=== PATIENT | male | born 1970 | race African-American/Black ===

== ENCOUNTER 2021-04-27 12:20 | Outpatient (REF) | payer OTHER, SELFPAY ==
--- NOTE | ~2021-04-27 | US_ITS ---
EXAMINATION: US ABDOMEN COMPLETE CLINICAL INFORMATION: Right upper quadrant pain. COMPARISON: Ultrasound abdomen 01/15/2019. TECHNIQUE: Real-time imaging of the abdominal viscera. FINDINGS: PANCREAS: Obscured by interposed bowel gas. ABDOMINAL AORTA: The proximal, mid, and distal segments are normal in caliber. INFERIOR VENA CAVA: Visualized portions are normal. LIVER: The liver is normal in size. The liver contour is normal. There is diffuse increased liver parenchymal echogenicity, consistent with hepatic steatosis. No focal hepatic lesion. There is no intrahepatic biliary duct dilatation seen. GALLBLADDER: Normal. The gallbladder is physiologically distended without evidence of stones, sludge, polyps, wall thickening or pericholecystic fluid. COMMON BILE DUCT: Normal in caliber measuring 0.5 cm in diameter. RIGHT KIDNEY: Normal. No hydronephrosis. No renal calculi or focal parenchymal lesions. The kidney measures 11.9 cm in maximum dimension. LEFT KIDNEY: Normal. No hydronephrosis. No renal calculi or focal parenchymal lesions. The kidney measures 12.3 cm in maximum dimension. SPLEEN: Top normal in size measuring 13.5 cm in maximum dimension. FREE FLUID: None. US/US abdomen complete IMPRESSION: Hepatic steatosis. Otherwise unremarkable exam.
== END 2021-04-27 12:21 | disposition home or self-care (01) ==
LOC: HO.US 12:20
PROVIDERS: Visit Provider Family Medicine
DX: R10.11 Right upper quadrant pain (principal)
CPT/HCPCS: 76700

== ENCOUNTER → 2021-05-05 12:45 | Outpatient (BNVA) | payer OTHER, SELFPAY | PROVIDERS: PCP Family Medicine; Referring Provider Family Medicine; Visit Provider Nurse Practitioner Family | DX: Z12.11 Encounter for screening for malignant neoplasm of colon (principal); R07.81 Pleurodynia | CPT/HCPCS: 99202; 99212 ==

== ENCOUNTER → 2022-05-09 15:31 | Outpatient (BNVA) | payer OTHER, SELFPAY | PROVIDERS: PCP Family Medicine; Visit Provider Surgery | DX: K43.9 Ventral hernia without obstruction or gangrene (principal); R10.9 Unspecified abdominal pain; B20 Human immunodeficiency virus [HIV] disease; E66.01 Morbid (severe) obesity due to excess calories | CPT/HCPCS: 99202 ==

== ENCOUNTER 2022-06-21 16:08 | Outpatient (REF) | payer OTHER, SELFPAY ==
--- NOTE | ~2022-06-21 | CT_ITS ---
EXAMINATION: CT ABDOMEN AND PELVIS WITHOUT CONTRAST CLINICAL INFORMATION: Ventral hernia without obstruction or gangrene. COMPARISON: Ultrasound abdomen 04/27/2021. TECHNIQUE: Multidetector volumetric imaging was performed from the superior aspect of the liver through the pubic symphysis. Sagittal and coronal reformatted images were obtained on the technologist's workstation. This CT examination was performed using dose optimization techniques as appropriate, variously including the following: *Automated exposure control *Adjustment of mA and/or kV according to patient size (this includes techniques or standardized protocols for targeted exams where dose is matched to indication/reason for exam; i.e. extremities or head) *Use of iterative reconstruction technique DLP: 971 mGy-cm FINDINGS: LUNG BASES: The lung bases are clear. The heart size is normal. LIVER, GALLBLADDER, AND BILIARY TREE: The liver is normal in size, shape, and attenuation. No focal hepatic lesion or biliary ductal dilatation is present. The gallbladder is unremarkable with no evidence of radiopaque gallstones, gallbladder wall thickening, or obvious pericholecystic inflammatory changes. PANCREAS: Unremarkable. SPLEEN: Unremarkable. ADRENAL GLANDS: Unremarkable. KIDNEYS AND URETERS: The kidneys are normal in size, shape, and attenuation. No hydronephrosis, hydroureter, or calculi seen. No perinephric stranding. BLADDER: The bladder is contracted. GASTROINTESTINAL TRACT: There is scattered stool in the colon without distention. The small-bowel loops are normal caliber. The appendix is not visualized. ABDOMINAL WALL: There is a moderate-size umbilical hernia containing intra-abdominal fat. LYMPH NODES: There are small prominent left inguinal lymph nodes. The largest lymph node measures 2.2 cm on sagittal image 37/7. VASCULAR: Unremarkable. PELVIC VISCERA: Unremarkable. OSSEOUS STRUCTURES: There are degenerative disc changes and spondylosis throughout lower dorsal and lumbar spine. No aggressive lytic or sclerotic process seen. CT/CT abdomen pelvis wo IV con IMPRESSION: Pjhpvkmw-zk-robki umbilical hernia containing fat. No induration of fat stranding seen. Otherwise no acute intra-abdominal process seen. Fleischner guidelines were followed.
== END 2022-06-21 16:09 | disposition home or self-care (01) ==
LOC: HO.CT 16:08
PROVIDERS: PCP Family Medicine; Visit Provider Surgery
DX: E66.01 Morbid (severe) obesity due to excess calories (principal); K43.9 Ventral hernia without obstruction or gangrene
CPT/HCPCS: 74176

== ENCOUNTER → 2022-07-09 13:01 | Outpatient (BNVA) | payer OTHER, SELFPAY | PROVIDERS: PCP Family Medicine; Visit Provider Surgery | DX: K43.9 Ventral hernia without obstruction or gangrene (principal); E66.01 Morbid (severe) obesity due to excess calories; B20 Human immunodeficiency virus [HIV] disease; M53.9 Dorsopathy, unspecified; Z99.89 Dependence on other enabling machines and devices | CPT/HCPCS: 99212 ==

== ENCOUNTER → 2022-08-03 14:37 | Outpatient (BNVA) | payer OTHER, SELFPAY | PROVIDERS: PCP Family Medicine; Visit Provider Surgery | DX: K43.9 Ventral hernia without obstruction or gangrene (principal); M53.9 Dorsopathy, unspecified; B20 Human immunodeficiency virus [HIV] disease; E66.01 Morbid (severe) obesity due to excess calories; Z99.89 Dependence on other enabling machines and devices; Z68.34 Body mass index [BMI] 34.0-34.9, adult | CPT/HCPCS: 99212 ==

== ENCOUNTER 2022-09-06 12:17 | Outpatient (REF) | payer OTHER, SELFPAY | END 2022-09-06 12:18 | disposition home or self-care (01) | LOC: HO.HOSX 12:17 | PROVIDERS: Visit Provider Orthopaedic Surgery | DX: Z13.89 Encounter for screening for other disorder (principal) ==

== ENCOUNTER 2022-09-27 09:09 | Outpatient (REF) | payer OTHER, SELFPAY ==
--- NOTE | ~2022-09-27 | XR_ITS ---
EXAMINATION: XR PELVIS CLINICAL INFORMATION: Hip pain COMPARISON: CT abdomen and pelvis 06/21/2022. TECHNIQUE: AP view of the pelvis. FINDINGS: There are prominent arthritic changes right hip with axial hip joint narrowing, protrusio acetabulum, and bulky osteophytes around the base femoral head and around the acetabulum. There is no acute or healing fracture or dislocation or destructive process. Degenerative disc changes again noted lower lumbar spine and lumbosacral junction. There is mild left hip joint narrowing. XR/XR pelvis 1-2V IMPRESSION: 1. Prominent arthritic changes right hip along with protrusion acetabulum. 2. Mild left hip joint narrowing. 3. Degenerative disc changes lower lumbar spine and lumbosacral junction.
== END 2022-09-27 09:10 | disposition home or self-care (01) ==
LOC: HO.HOSX 09:09
PROVIDERS: Visit Provider Orthopaedic Surgery
DX: M16.11 Unilateral primary osteoarthritis, right hip (principal); M41.9 Scoliosis, unspecified; M17.11 Unilateral primary osteoarthritis, right knee; B20 Human immunodeficiency virus [HIV] disease
CPT/HCPCS: 72170; 99202

== ENCOUNTER → 2022-12-24 14:50 | Outpatient (BNVA) | payer OTHER, SELFPAY | PROVIDERS: PCP Family Medicine; Visit Provider Orthopaedic Surgery ==

== ENCOUNTER → 2023-01-03 10:45 | Outpatient (BNVA) | payer OTHER, MEDICAID, SELFPAY | PROVIDERS: PCP Family Medicine; Visit Provider Physician Assistant ==

== ENCOUNTER 2023-01-08 07:07 | Inpatient (IN) | payer OTHER, SELFPAY ==
[2022-12-28 12:04] VITALS: BP 138/84; PULSE 82; RESP 16; O2SAT 97; BMI 36.8
[2022-12-28 15:37] LABS: MRSA Nasal PCR NEGATIVE (Negative); SA Nasal PCR POSITIVE (Negative)
[2023-01-08] VITALS (12 sets, daily range): BP systolic 138–188; BP diastolic 78–101; PULSE 74–86; RESP 10–20; TEMP 36.1–36.5; O2SAT 95–100
--- NOTE | ~2023-01-08 | XR_ITS ---
EXAMINATION: XR PELVIS CLINICAL INFORMATION: Right total hip replacement COMPARISON: X-ray pelvis 09/27/2022 TECHNIQUE: AP view of the pelvis. FINDINGS: There is a total right hip replacement with prosthetic components in satisfactory alignment. No periprosthetic fracture. No soft tissue abnormality except for gas from surgery. The left hip joint space is unremarkable. XR/XR pelvis 1-2V IMPRESSION: Status post total right hip arthroplasty with prosthetic components in satisfactory alignment.
--- NOTE | 2023-01-08 07:22 | PHA.MEDREC ---
Pharmacy Consult ? Medication Reconciliation Pharmacy has reviewed the medication reconciliation completed by nursing.
[2023-01-08 08:07] LABS: COVID-19 Test Negative (Negative); IDNOW Serial# BCCEAD1C
[2023-01-08] MEDS: Lactated Ringers 1,000 ML 50 ML IVCONT (08:17)
[2023-01-08 08:37] LABS: Hematocrit 37.7 % (42.0-52.0); Hemoglobin 11.9 g/dl (14.0-18.0)
--- NOTE | 2023-01-08 10:13 | HO.ANESPROP2 ---
HPI - Anesthesia Eval Consult details Narrative: 52 M for AC PMFSH Active Problems Active Problems: All Active Problems (Updated 01/08/23 @ 08:21 by Rosa Musa RN) HIV (human immunodeficiency virus infection) (Acute) Morbid (severe) obesity due to excess calories (Acute) Ventral hernia (Acute) Ambulates with cane (Acute) Low back problem (Acute) Osteoarthritis of right hip (Acute) Osteoarthritis of right knee (Acute) Scoliosis (Acute) Past Medical History Medical History Anxiety GERD (gastroesophageal reflux disease) Hx of hepatitis C Insomnia Right knee pain Family History Family History Maternal Uncle Lung cancer Family history of problems with anesthesia: No Surgical History Surgical History H/O dental oriental orthodox No pertinent past surgical history History of Problems with Anesthesia: No Social History Social History Household Members: Other Household Members Other:: nephew Housing: House Are you a primary personal care aid to a significant other at home: No Do you presently have visiting nurse or other home services: Yes (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) Alcohol intake: current Alcohol intake frequency: holidays/special occasions only Patient Tobacco Use Status: Never used Tobacco Substance Use Type: Former Substance User and Opiates Substance Use Type Other:: on suboxone since 2012- clean 5 years Have you been hit, kicked, punched, or otherwise hurt by someone within the past year? If so, by whom?: No Spiritual Healthcare Practices: none [facility] Practices: none Cultural Healthcare Practices: none Are you DNR?: No Advance Directives: No Advance Directives Information Provided: Yes Advance Directives on File: No Recently lost weight without trying: No Nutrition Risks: No Nutritional Risk Poor oral hygiene: Yes (cracked upper left molar, no dentist visit for 20 years ) Meds Allergies Allergy/AdvReac Type Severity Reaction Status Date / Time sulfamethoxazole Allergy Intermediate Rash Verified 01/03/23 10:55 [From Bactrim] trimethoprim [From Bactrim] Allergy Intermediate Rash Verified 01/03/23 10:55 Active Medications: Current Medications Lactated Ringer's (Lr) 1,000 mls @ 50 mls/hr IVCONT .Q20H ESTEBAN Last Admin: 01/08/23 08:17 Dose: 50 mls/hr Home Medications Medication Instructions Recorded Confirmed Last Taken Type albuterol sulfate 90 mcg/actuation 2 puff inhalation Q6H PRN Wheezing 05/05/21 12/24/22 01/09/22 History aerosol inhaler bictegravir 50 mg-emtricitabine 1 tab PO DAILY 05/05/21 12/28/22 01/07/23 History 200 mg-tenofovir alafenam 25 mg tablet (Biktarvy) blood pressure test kit-large #1 ea 05/05/21 12/24/22 Unknown History buprenorphine 8 mg-naloxone 2 mg 1 film sublingual TID 05/05/21 12/28/22 01/07/23 History sublingual film bupropion HCl 300 mg 24 hr tablet, 300 mg PO QAM 05/05/21 12/28/22 01/07/23 History extended release (Wellbutrin XL) duloxetine 30 mg capsule,delayed 30 mg PO DAILY 05/05/21 12/28/22 01/07/23 History release (Cymbalta) duloxetine 60 mg capsule,delayed 60 mg PO DAILY 05/05/21 12/28/22 01/07/23 History release omeprazole magnesium 20 mg 20 mg PO DAILY 05/05/21 12/28/22 01/07/23 History tablet,delayed release (Prilosec OTC) gabapentin 400 mg capsule 400 mg PO TID 12/24/22 12/28/22 01/07/23 History ibuprofen 200 mg tablet 400 mg PO Q6H PRN Pain 12/28/22 12/28/22 01/02/23 History melatonin 10 mg tablet 10 mg PO BEDTIME PRN Insomnia 12/28/22 12/28/22 01/07/23 History bbvlavsc-tif-mokah acid 300 1 tab PO DAILY 12/28/22 12/28/22 01/07/23 History mcg-lycopene 600 mcg-lutein 300 mcg tablet (Centrum [facility]) bupropion HCl 150 mg 24 hr tablet, 150 mg PO DAILY 01/08/23 01/08/23 01/07/23 History extended release Exam Exam Date and Time: January 08, 2023 1013 Height,Weight and Vital Signs: Height 5 ft 7 in Weight 235 lb Last Vital Signs Temp 97 F 01/08/23 08:01 Pulse 83 01/08/23 08:01 Resp 20 01/08/23 08:01 BP 152/92 H 01/08/23 08:01 Pulse Ox 98 01/08/23 08:01 O2 Del Method Room Air 01/08/23 08:01 Pertinent Lab Results Pertinent Lab Results: Laboratory Tests 12/28/22 12/28/22 01/08/23 12:30 13:35 07:40 Hgb Hct Nasal Screen MRSA (PCR) NEGATIVE Nasal S. aureus Screen POSITIVE A Nasal MRSA/S.aureus Interp SEE NOTE COVID-19 (KO) Negative COVID-19 Clin Com See Note Blood Type O Positive Antibody Screen NEGATIVE 01/08/23 08:24 Hgb 11.9 L Hct 37.7 L Nasal Screen MRSA (PCR) Nasal S. aureus Screen Nasal MRSA/S.aureus Interp COVID-19 (KO) COVID-19 Clin Com Blood Type Antibody Screen Airway Mallampati Class: II TM Dist: >3cm Neck ROM: Full Adult Head Mouth w/Numbe Teeth: 1. Chipped Loose/Missing/Broken Teeth: Yes Assessment and Plan Assessment Anesthesia Assessment: Anesthesia Plan Discussed and Chart Reviewed Final Anesthetic Review Family History of Problems with Anesthesia: No History of Problems with Anesthesia: No NPO: Yes ASA Class: II Final Preanesthetic Review: No Changes in Pt Med Stat, Meds/Allgs Chart Reviewed, Consent Obtained/Reviewed and Anes Risks/Benef Reviewed Patient Risk: Low Procedure Risk: Low Anesthetic Plan Anesthetic Plan: GA Disposition: Standard PACU
--- NOTE | 2023-01-08 12:49 | PM.OP ---
Brief Operative Note Date of Service: 01/08/23 Pre-op diagnosis: RIght hip OA Post-op diagnosis: same Procedure: Right AC Implants: Rom Trident 54/ 20 deg lip liner [place] Accolade2 #5 127 deg with +2.5 /36 ceramic femoral head Surgeon: Jp Hernandez MD Anesthesia: GETA and local Was an Immigration Coordinator used for this Procedure?: Yes Immigration Coordinator: Nick Burrows Estimated blood loss (mL): 250 IV fluids (mL): 1,000 Pathology: other Condition: stable Disposition: PACU
[2023-01-08] MEDS: HYDROmorphone HCl 0.5 MG/0.5 ML SYRINGE IVPUSH ×2 (13:10→17:55)
[2023-01-08] MEDS: Acetaminophen 1,000 MG/100 ML PIGGYBACK 400 MG IV ×3 (13:12→21:10)
[2023-01-08] MEDS: hydrALAZINE HCl 20 MG/ML VIAL 10 MG IVPUSH (13:45)
[2023-01-08] MEDS: Lactated Ringers 1,000 ML 100 ML IVCONT ×2 (14:01→23:57)
[2023-01-08] MEDS: oxyCODONE HCl Immed Release 5 MG TABLET 10 MG PO (15:25)
--- NOTE | 2023-01-08 15:37 | P.CONHOSP_ITS ---
History of Present Illness Data of Consult Service Date: 01/08/23 Requesting physician: Nick Burrows Primary Care Provider: Kaylee Mazariegos MD HPI Reason for consult: medical management 52-year-old male with history of HIV on Biktarvy following with Dr. Brush at [facility], hx hepatitis c treated 2010, chronic pain syndrome, osteoarthritis, hx polysubstance use, opioid depedence on suboxone, and scoliosis admitted to orthopedic surgery for management of OA right hip s/p right AC with consult placed to hospitalist service for medical management. He is reporting some low back pain. Otherwise no complaints. Review of Systems Review of Systems: General: No fevers, malaise, unintentional weight loss HEENT: No blurred vision, diplopia. No sore throat, nasal congestion, rhinorrhea, sinus pain, ear pain Cardiovascular: No chest pain, palpitations, or leg edema Respiratory: No shortness of breath, wheezing, cough GI: No abdominal pain, nausea, vomiting, diarrhea, constipation, melena, mariza tochezia : No dysuria, hematuria, increased urinary frequency, decreased urinary output MSK: No myalgia, +low back pain Neuro: No headaches, weakness, paresthesias Skin: No rashes or lesions [facility] Medical History (Updated 01/08/23 @ 15:42 by ENOCH Anna) Anxiety Chronic pain disorder GERD (gastroesophageal reflux disease) HIV (human immunodeficiency virus infection) Hx of hepatitis C Insomnia Osteoarthritis of right hip Right knee pain Family History Maternal Uncle Lung cancer Surgical History H/O dental mosque No pertinent past surgical history Social History Household Members: Other Household Members Other:: nephew Housing: House Are you a primary adult day care worker to a significant other at home: No Do you presently have visiting nurse or other home services: Yes (FEED IN WORKER nephew, daily Moving 01/05/2023-4 [facility]) Alcohol intake: current Alcohol intake frequency: holidays/special occasions only Patient Tobacco Use Status: Never used Tobacco Substance Use Type: Former Substance User and Opiates Substance Use Type Other:: on suboxone since 2012- clean 5 years Have you been hit, kicked, punched, or otherwise hurt by someone within the past year? If so, by whom?: No Spiritual Healthcare Practices: none Evangelical Healthcare Practices: none Cultural Healthcare Practices: none Are you DNR?: No Advance Directives: No Advance Directives Information Provided: Yes Advance Directives on File: No Recently lost weight without trying: No Nutrition Risks: No Nutritional Risk Poor oral hygiene: Yes (cracked upper left molar, no dentist visit for 20 years ) Meds Allergies Allergy/AdvReac Type Severity Reaction Status Date / Time sulfamethoxazole Allergy Intermediate Rash Verified 01/03/23 10:55 [From Bactrim] trimethoprim [From Bactrim] Allergy Intermediate Rash Verified 01/03/23 10:55 Active Medications: Current Medications Albuterol Sulfate (Albuterol Sulfate (0.083%) 2.5 Mg/3 Ml Vial.Neb) 2.5 mg INHALE ONCE PRN PRN Reason: Wheezing Buprenorphine/Naloxone (Buprenorphine/Naloxone 8/2 Mg Film) 1 film SUBLINGUAL TID ESTEBAN Celecoxib (Celecoxib 200 Mg Capsule) 200 mg PO BID ESTEBAN Docusate Sodium (Docusate Sodium 100 Mg Capsule) 100 mg PO BID ESTEBAN Hydromorphone HCl (Hydromorphone Hcl 0.5 Mg/0.5 Ml Syringe) 0.5 mg IVPUSH Q5M PRN; Protocol PRN Reason: Pain, Severe (Pain Scale 7-10) Last Admin: 01/08/23 13:10 Dose: 0.5 mg Hydromorphone HCl (Hydromorphone Hcl 0.5 Mg/0.5 Ml Syringe) 0.5 mg IVPUSH Q4H PRN; Protocol PRN Reason: Pain, Severe (Pain Scale 7-10) Lactated Ringer's (Lr) 1,000 mls @ 50 mls/hr IVCONT .Q20H ESTEBAN Last Admin: 01/08/23 08:17 Dose: 50 mls/hr Promethazine HCl 12.5 mg/ (Sodium Chloride) 50.5 mls @ 202 mls/hr IV ONCE PRN PRN Reason: Nausea and Vomiting Lactated Ringer's (Lr) 1,000 mls @ 100 mls/hr IVCONT .Q10H [facility] Stop: 01/09/23 13:51 Last Admin: 01/08/23 14:01 Dose: 100 mls/hr Cefazolin Sodium/Dextrose (Ancef) 2 gm in 50 mls @ 100 mls/hr IV POSTOP ONE Stop: 01/08/23 16:29 Acetaminophen (Ofirmev) 1,000 mg in 100 mls @ 400 mls/hr IV Q6H [facility] Stop: 01/09/23 09:10 Last Admin: 01/08/23 15:28 Dose: 400 mls/hr Ondansetron HCl (Ondansetron Hcl 4 Mg/2 Ml Vial) 4 mg IVPUSH ONCE PRN PRN Reason: Nausea and Vomiting Ondansetron HCl (Ondansetron Hcl 4 Mg/2 Ml Vial) 4 mg IVPUSH Q8H PRN PRN Reason: Nausea and Vomiting Oxycodone HCl (Oxycodone Hcl Immed Release 5 Mg Tablet) 5 mg PO ONCE PRN PRN Reason: Pain, Severe (Pain Scale 7-10) Oxycodone HCl (Oxycodone Hcl Immed Release 5 Mg Tablet) 10 mg PO Q4H PRN PRN Reason: Pain, Moderate (Pain Scale 4-6 Last Admin: 01/08/23 15:25 Dose: 10 mg Oxycodone HCl (Oxycodone Hcl Er 10 Mg Tab.Er.12h) 10 mg PO BID [facility] Sodium Chloride (0.9 % Sodium Chloride Flush 3 Ml Syringe) 3 ml IVFLUSH QSHIFT [facility] Home Medications Medication Instructions Recorded Confirmed Last Taken Type albuterol sulfate 90 mcg/actuation 2 puff inhalation Q6H PRN Wheezing 05/05/21 12/24/22 01/09/22 History aerosol inhaler bictegravir 50 mg-emtricitabine 1 tab PO DAILY 05/05/21 12/28/22 01/07/23 History 200 mg-tenofovir alafenam 25 mg tablet (Biktarvy) blood pressure test kit-large #1 ea 05/05/21 12/24/22 Unknown History buprenorphine 8 mg-naloxone 2 mg 1 film sublingual TID 05/05/21 12/28/22 04/0 12/27 History sublingual film bupropion HCl 300 mg 24 hr tablet, 300 mg PO QAM 05/05/21 12/28/22 01/07/23 History extended release (Wellbutrin XL) duloxetine 30 mg capsule,delayed 30 mg PO DAILY 05/05/21 12/28/22 01/07/23 History release (Cymbalta) duloxetine 60 mg capsule,delayed 60 mg PO DAILY 05/05/21 12/28/22 01/07/23 History release omeprazole magnesium 20 mg 20 mg PO DAILY 05/05/21 12/28/22 01/07/23 History tablet,delayed release (Prilosec OTC) gabapentin 400 mg capsule 400 mg PO TID 12/24/22 12/28/22 01/07/23 History ibuprofen 200 mg tablet 400 mg PO Q6H PRN Pain 12/28/22 12/28/22 01/02/23 History melatonin 10 mg tablet 10 mg PO BEDTIME PRN Insomnia 12/28/22 12/28/22 01/07/23 History zzjpuopv-gkl-bcauy acid 300 1 tab PO DAILY 12/28/22 12/28/22 01/07/23 History mcg-lycopene 600 mcg-lutein 300 mcg tablet (Centrum [facility]) bupropion HCl 150 mg 24 hr tablet, 150 mg PO DAILY 01/08/23 01/08/23 01/07/23 History extended release Physical Exam Vital Signs and Narrative: Vital Signs: Last Vital Signs Temp 97.2 F 01/08/23 14:59 Pulse 78 01/08/23 14:59 Resp 15 01/08/23 14:59 BP 166/91 H 01/08/23 14:59 Pulse Ox 98 01/08/23 14:59 O2 Del Method Room Air 01/08/23 14:59 O2 Flow Rate 1 01/08/23 13:15 BMI result Body Mass Index 36.8 Constitutional - Awake and Alert, No apparent distress Eyes - PERRLA, EOMI Cardiovascular - S1S2, RRR, No edema Respiratory - Normal lung expansion, Normal respiratory effort, No respiratory distress, CTA bilaterally Gastrointestinal - NT / ND; +BS; No rebound or guarding Extremities - no calf tenderness bilaterally, no swelling Skin - Warm/Dry Neurological - Alert & oriented x3 Psychological - Appropriate affect Results Labs 01/08/23 08:24 Labs: Laboratory Results - last 24 hr 01/08/23 07:40 COVID-19 (KO) Negative COVID-19 Clin Com See Note Imaging Radiologist's Impressions: Impressions Pelvis X-Ray 01/08/23 12:48 IMPRESSION: Status post total right hip arthroplasty with prosthetic components in satisfactory alignment. Assessment and Plan (1) Osteoarthritis of right hip: Status: Acute Plan 52-year-old male with history of HIV on Biktarvy following with Dr. Brush at [facility], hx hepatitis c treated 2010, chronic pain syndrome, osteoarthritis, hx polysubstance use, opioid depedence on suboxone, and scoliosis admitted to orthopedic surgery for management of OA right hip s/p right AC with consult placed to hospitalist service for medical management. #Osteoarthritis right knee s/p right AC POD 0 -plan per ortho surgery #HIV -Continue Biktarvy -Reports last viral load negative, CD4 count reasonable (does not recall value) -Outpt follow up #Opioid dependence with chronic pain syndrome -continue suboxone, gabapentin, duloxetine -Further pain management per ortho surgery #Severe obesity- BMI >36 -weight loss efforts advised Thank you for allowing me to participate in this consult. Signing off at this time. Please do not hesitate to call for further questions. Time Spent With Patient Time: Total time managing care of this patient today ____ minutes.
[2023-01-08] MEDS: Buprenorphine/Naloxone 8/2 mg FILM 1 FILM SUBLINGUAL ×2 (15:39→21:12)
[2023-01-08] MEDS: ceFAZolin Sodium/Dextrose,Iso 2 GM/50 ML PIGGYBACK IV (16:25)
[2023-01-08] MEDS: Docusate Sodium 100 MG CAPSULE PO (21:11)
[2023-01-08] MEDS: Celecoxib 200 MG CAPSULE PO (21:11)
[2023-01-08] MEDS: oxyCODONE HCl ER 10 MG TAB.ER.12H PO (21:11)
[2023-01-08] MEDS: 0.9 % Sodium Chloride Flush 3 ML SYRINGE IVFLUSH (21:12)
[2023-01-09 01:51] VITALS: BP 139/91; PULSE 108; RESP 16; TEMP 37.5; O2SAT 95
[2023-01-09 03:32] VITALS: BP 116/56; PULSE 99; RESP 16; TEMP 37.1; O2SAT 95
[2023-01-09] MEDS: Lactated Ringers 1,000 ML 50 ML IVCONT ×2 (04:10→21:27)
[2023-01-09 06:00] VITALS: BP 146/84; PULSE 103; RESP 16; TEMP 37.7; O2SAT 94
[2023-01-09 06:04] LABS: MANUAL DIFF FLAG NO
[2023-01-09 06:20] LABS: Basophils Percent Auto 0.3 % (0-2); Eosinophils Percent Auto 0.5 % (0-4); Hemoglobin 8.9 g/dl (14.0-18.0); Imm Gran Abs Auto 0.03 X10*3/uL (0.00-0.03); Imm Gran Pct Auto 0.5 % (0.0-0.4); Lymphocytes Absolute Auto 1.1 X10*3/uL (1.2-4.9); Lymphocytes Percent Auto 18.8 % (20-40); Mean Corpuscular HGB Conc 31.8 g/dl (31.0-36.0); Mean Corpuscular Hemoglobin 26.9 pg (27.0-33.0); Mean Corpuscular Volume 84.6 fL (80.0-98.0); Mean Platelet Volume 9.1 fL (9.4-12.4); Monocytes Absolute Auto 0.9 X10*3/uL (0.1-1.2); Monocytes Percent Auto 14.5 % (2-11); Neutrophils Percent Auto 65.4 % (45-73); Platelet Count 196 X10*3/uL (160-400); Red Blood Count 3.31 X10*6/uL (4.60-5.80); White Blood Count 6.1 X10*3/uL (4.8-10.8)
[2023-01-09 06:41] LABS: Anion Gap 10 (12-20); Blood Urea Nitrogen 13 mg/dL (9-16); Calcium 7.9 mg/dL (8.4-10.2); Carbon Dioxide 23 mmol/L (22-29); Chloride 106 mmol/L (96-108); Estimated Glomerular Filt Rate > 60; Glucose Fasting 110 mg/dL (60-99); Sodium 135 mmol/L (135-145)
[2023-01-09] MEDS: HYDROmorphone HCl 0.5 MG/0.5 ML SYRINGE IVPUSH (06:49)
[2023-01-09 07:13] VITALS: BP 153/88; PULSE 109; RESP 17; TEMP 37.3; O2SAT 97
--- NOTE | 2023-01-09 07:24 | PM.PNORT ---
Subjective Subjective Date of Service: 01/09/23 Interval history: POD1 s/p RTHA. No overnight events. Pain is well managed. Resting in bed comfortably. No additional complaints. Physical Exam Vital Signs: Vital Signs: Last Vital Signs Temp 99.1 F 01/09/23 07:13 Pulse 109 H 01/09/23 07:13 Resp 17 01/09/23 07:13 BP 153/88 H 01/09/23 07:13 Pulse Ox 97 01/09/23 07:13 O2 Del Method Room Air 01/09/23 07:13 O2 Flow Rate 1 01/08/23 13:15 BMI result Body Mass Index 36.8 Const: General: cooperative, healthy appearing and no acute distress Resp: Effort & Inspection: normal respiratory effort and able to speak in complete sentences Cardio: Rate: regular rate Peripheral pulses: Peripheral pulses 2+ throughout GI: Palpation (GI): Soft to palpation Skin: Lesions: no lesions Rashes: no rashes Extrem: Other: Right hip Aquacel is c/d/i. Able to dosri/plantarflex. NVI. Procedures Date of Service Date of Service: 01/09/23 Progress Note: A&P Assessment and plan (1) Status post total hip replacement, right: Status: Acute Plan Continue pain mgmnt Begin ASA for dvt ppx begin PT for RTHA - WBAT Dispo planning-Pending PT eval, pain mgmnt Time Spent With Patient Time: Total time managing care of this patient today ____ minutes. Quality Stroke Does the patient have a stroke diagnosis?: No VTE Prior VTE?: No VTE Risk Level:: Medical - moderate - high VTE Device Contraindication: N/A - Device Ordered VTE Drug Contraindication: N/A - Med Ordered
[2023-01-09] MEDS: Acetaminophen 1,000 MG/100 ML PIGGYBACK 400 MG IV (09:04)
[2023-01-09] MEDS: Docusate Sodium 100 MG CAPSULE PO ×2 (09:05→21:24)
[2023-01-09] MEDS: Celecoxib 200 MG CAPSULE PO ×2 (09:05→21:24)
[2023-01-09] MEDS: oxyCODONE HCl ER 10 MG TAB.ER.12H PO ×2 (09:05→21:25)
[2023-01-09] MEDS: Buprenorphine/Naloxone 8/2 mg FILM 1 FILM SUBLINGUAL ×3 (09:06→21:25)
[2023-01-09] MEDS: Lactated Ringers 1,000 ML 100 ML IVCONT (09:06)
[2023-01-09] MEDS: oxyCODONE HCl Immed Release 5 MG TABLET 10 MG PO (10:35)
--- NOTE | 2023-01-09 11:46 | MHC.CM.PN ---
pt lives alone will be going home with hvns per pts choice pt is cris wayx x 2 has own ride home pt will be moving from [address] in [place]
[2023-01-09] MEDS: Aspirin 325 MG TABLET PO ×2 (12:10→21:24)
--- NOTE | 2023-01-09 14:08 | HO.POSTANES ---
Post Anesthesia Evaluation Post Anesthesia Evaluation Vital Signs: Vital Signs Temp Pulse Resp BP Pulse Ox O2 Del Method 01/09/23 07:13 99.1 F 109 H 17 153/88 H 97 Room Air 01/09/23 06:00 99.8 F 103 H 16 146/84 H 94 Room Air 01/09/23 03:32 98.7 F 99 16 116/56 L 95 Room Air Anesthesia: General Mental Status: Awake Pain Control: Satisfactory Nausea/Vomiting: None Hydration: Adequate Anesthesia-Related Issues: No Anes. Related Issues
--- NOTE | 2023-01-09 14:35 | W.PM.OPN ---
Operative Note Operative Note Date of Service: 01/09/23 Narrative: Date of Service: 01/08/23 Pre-op diagnosis: RIght hip OA Post-op diagnosis: same Procedure: Right AC Implants: Otley Trident 54/ 20 deg lip liner Rom Accolade2 #5 127 deg with +2.5 /36 ceramic femoral head Surgeon: Jp Hernandez MD Anesthesia: GETA and local Was an Setter Induction Heating Equipment used for this Procedure?: Yes Setter Induction Heating Equipment: Nick Burrows Estimated blood loss (mL): 250 IV fluids (mL): 1,000 Pathology: other Condition: stable Disposition: PACU Procedure in detail: Patient was brought into the operating room and placed in the right lateral decubitus position. All bony prominences were well padded and the limb was prepped and draped in standard sterile fashion. A time-out was called to identify proper site procedure proper surgeon IV antibiotics and 1 g of transaxemic acid were administered. I began by making a curvilinear incision over the posterolateral aspect of the greater trochanter. Of not he had a fixed flexion contracture and I was unable to extend to less than 45deg. He was externally rotated about 20 deg and I could not internally rotate his leg at all. Dissection was taken down to the tensor fascia which was incised in line with the incision and a Charnley retractor was placed. Cautery was used to maintain hemostasis. I perfromed a capsulotomy nad could visualize the acetabulum and the femoral head. Because he was in protrusio I used a small osteotome to circumeferetnially ( not anterior) remove approximately 5-7 mm of acetabulum. This allowed for me to eventually dislocate. A neck cut was made ~1 cm from the lesser. I then pleaced my anterior and posterior acetabular retractors and removed inferior and anterior and superior osteophytes. I then begane with a 46 reamer. I could not medialize given the prostrusio and so I sequentially reamed up to a 54. I weas able to get to bleeding bone circumferentially and impacted a 54 cup in 45 incliniation and ~ 20 deg of anteversion. I then placed a 20 deg posterior lipped liner and turned my attention to the femur. A Werewolf cautery wand was used to maintain hemostasis over the capsule and meniscal beds, the gutters and peripatellar soft tissues. I identified the piriformis insertion and used this as a starting point for my mitziie cutter. The medius tendon was protected with a Hibs retractor. A Charnley awl was inserted in the canal and a curved curette used to remove the lateral bone. I irrigated copiously. I then sequentially broached in the patient's natural version to a size 5 and placed my trial implants. I used a #5/127/+2.5based on my pre-operative template. Using a trail head I took the hip through range of motion. I was satisfied with the stability. There was some anterior impingement of the trochanter on the acetabular osteophytes and I did additianal bony removal anterioly and superiorly. I removed all instrumentation and copiously irrigated. I placed my final femoral implant and again took the hip through range of motion and was satisfied with the stability and length. The final 2.5 implant was impacted in place and the hip reduced. I then irrigated for 3 minutes with iodine and placed 1 g of local transaxemic acid. I performed a capsular closure with 2.0 fiberwire, Kzizy's fascia with 0 Vicryl, subcuticular with 2-0 Vicryl and the skin with cortez. Patient was placed into a sterile dressing. Radiogrpahs were taken supine on the operative table and I was satsified with the alignement and the patient was subsequently extubated brought to the recovery room in stable condition. There were no known complications.
[2023-01-09 15:45] VITALS: BP 136/67; PULSE 93; RESP 16; TEMP 36.3; O2SAT 95
[2023-01-09 20:00] VITALS: BP 142/80; PULSE 106; RESP 16; TEMP 36.6; O2SAT 95
[2023-01-10 03:38] VITALS: BP 131/70; PULSE 106; RESP 16; TEMP 36.1; O2SAT 95
[2023-01-10 06:01] LABS: MANUAL DIFF FLAG NO
[2023-01-10 06:10] LABS: Basophils Percent Auto 0.2 % (0-2); Eosinophils Absolute Auto 0.1 X10*3/uL (0.0-0.4); Eosinophils Percent Auto 0.6 % (0-4); Hematocrit 26.4 % (42.0-52.0); Hemoglobin 8.4 g/dl (14.0-18.0); Imm Gran Abs Auto 0.04 X10*3/uL (0.00-0.03); Imm Gran Pct Auto 0.4 % (0.0-0.4); Lymphocytes Absolute Auto 1.5 X10*3/uL (1.2-4.9); Lymphocytes Percent Auto 16.4 % (20-40); Mean Corpuscular HGB Conc 31.8 g/dl (31.0-36.0); Mean Corpuscular Hemoglobin 26.9 pg (27.0-33.0); Mean Corpuscular Volume 84.6 fL (80.0-98.0); Monocytes Absolute Auto 1.4 X10*3/uL (0.1-1.2); Monocytes Percent Auto 15.4 % (2-11); Neutrophils Absolute Auto 6.1 x10*3/uL (2.0-8.3); Platelet Count 191 X10*3/uL (160-400); Red Blood Count 3.12 X10*6/uL (4.60-5.80); Red Cell Distribution Width 14.1 % (11.0-16.0); White Blood Count 9.1 X10*3/uL (4.8-10.8)
[2023-01-10 06:22] LABS: Anion Gap 12 (12-20)
[2023-01-10] MEDS: oxyCODONE HCl ER 10 MG TAB.ER.12H PO (07:25)
[2023-01-10] MEDS: Aspirin 325 MG TABLET PO (07:25)
[2023-01-10] MEDS: Celecoxib 200 MG CAPSULE PO (07:25)
[2023-01-10] MEDS: Docusate Sodium 100 MG CAPSULE PO (07:25)
[2023-01-10] MEDS: Buprenorphine/Naloxone 8/2 mg FILM 1 FILM SUBLINGUAL (07:26)
[2023-01-10 07:45] LABS: Blood Urea Nitrogen 8 mg/dL (9-16); Calcium 8.4 mg/dL (8.4-10.2); Carbon Dioxide 23 mmol/L (22-29); Chloride 104 mmol/L (96-108); Creatinine Clr Calc Pharmacy 171.4; Estimated Glomerular Filt Rate > 60; Glucose Fasting 105 mg/dL (60-99); Potassium 3.9 mmol/L (3.3-5.1); Sodium 135 mmol/L (135-145)
[2023-01-10 08:00] VITALS: BP 138/68; PULSE 104; RESP 16; TEMP 36.4; O2SAT 98
--- NOTE | 2023-01-10 08:40 | W.MHC.F2F ---
Service Date Service Date: 01/10/23 Encounter Date of encounter: 01/10/23 Reasons for Services Signs and symptoms assessed: s/p RTHA. Pt. is considered homebound due to recent surgery. Unable to drive, poor balance, poor gait mechanics. Reason for physical therapy: home safety and mobility, therapeutic exercises, restore joint function, gait/transfer training, assess need for DME and ADL training Reason for occupational therapy: home safety and mobility, therapeutic exercises, restore joint function, gait/transfer training, assess need for DME and ADL training Homebound: Leaving the home is medically contraindicated at this time without the asist of a device and/or another person due th the listed conditions above and below. Reason homebound: unsteady gait / fall risk, leg weakness, pain with ambulation, pain with transfers, poor balance / fall risk and unable to drive Certification: Based on the above findings, I certify that this patient is confined to the home and needs intermittent long-term care, physical therapy and/or speech therapy, or continues to need occupational therapy. The patient is under my care, and I have initiated the establishment of the plan of care. The patient will be followed by a physician who will periodically review the plan of care. Time Spent With Patient Time: Total time managing care of this patient today ____ minutes.
--- NOTE | 2023-01-10 08:45 | P.DS_ITS ---
DS: Providers Provider Date of Service: 01/10/23 Date of admission: 01/08/23 07:07 Primary care physician: Kaylee Mazariegos MD Consults: 01/08/23 14:56 Consult to Hospitalist Routine Comment: hiv/hep c/medical data management manager Provider: Hospitalist Reason For Exam: hiv/hep c/medical management DS: Diagnosis Discharge Diagnosis (1) Status post total hip replacement, right: Status: Acute DS: Summary Hospital Course Hospital Course: The patient underwent a successful right total hip arthroplasty, they were transferred to PACU and then to the floor to recover. During their stay, their v itals were stable, afebrile at 97.6. Labs were unremarkable, H/H 8.4/26.4. POD 1 they were started on Aspirin 325mg po bid for DVT ppx, they also received Physical Therapy services twice a day. Prior to discharge, their dressing was changed, incision clean dry and intact, new Aquacel dressing applied and the plan was to be discharged home with VNA services. Time Spent with Patient Time attestation: Total time managing care of this patient today ____ minutes. Discharge coordination time: Less than 30 minutes Quality: Safe Use of Opioids Does Pt have an Active Cancer Diagnosis on the Problem List?: No Quality: Stroke Does the patient have a stroke diagnosis?: No Physical Exam Vital Signs: Vital Signs: Last Vital Signs Temp 97.6 F 01/10/23 08:00 Pulse 104 H 01/10/23 08:00 Resp 16 01/10/23 08:00 BP 138/68 01/10/23 08:00 Pulse Ox 98 01/10/23 08:00 O2 Del Method Room Air 01/10/23 08:00 O2 Flow Rate 1 01/08/23 13:15 BMI result Body Mass Index 36.8 Const: General: cooperative, healthy appearing and no acute distress Resp: Effort & Inspection: normal respiratory effort and able to speak in complete sentences Cardio: Rate: regular rate Peripheral pulses: Peripheral pulses 2+ throughout GI: Palpation (GI): Soft to palpation Skin: Lesions: no lesions Rashes: no rashes Extrem: Other: Right hip cortez intact. No erythema or drainage. Able to dosri/plantarflex. NVI. DS: Data Data Completed and Pending Pending studies at discharge: Pending at discharge 01/08/23 11:24 Surgical [PTH] Routine Labs on day of discharge: Laboratory Results - last 24 hr 01/10/23 01/10/23 05:17 05:17 WBC 9.1 RBC 3.12 L Hgb 8.4 L Hct 26.4 L MCV 84.6 MCH 26.9 L MCHC 31.8 RDW 14.1 Plt Count 191 MPV 9.0 L Immature Gran % (Auto) 0.4 Neut % (Auto) 67.0 Lymph % (Auto) 16.4 L Eagle % (Auto) 15.4 H Eos % (Auto) 0.6 Baso % (Auto) 0.2 Lymph # (Auto) 1.5 Eagle # (Auto) 1.4 H Eos # (Auto) 0.1 Baso # (Auto) 0.0 Abs Immat Gran (auto) 0.04 H Absolute Neuts (auto) 6.1 Absolute Nucleated RBC 0.000 Nucleated RBC % (auto) 0.0 Sodium 135 Potassium 3.9 Chloride 104 Carbon Dioxide 23 Anion Gap 12 BUN 8 L Creatinine 0.58 Estim Creat Clear Calc 171.4 Estimated GFR > 60 Fasting Glucose 105 H Calcium 8.4 D Discharge Plan Discharge Anticipated Discharge Date/Time: 01/10/23 12:31 Patient Disposition: Home Health Service Discharge Diagnosis: s/p RTHA Referrals: Aeysha Prado PA-C [Physician Messenger Floorperson] - 2 Weeks (01/24/23 2:30 [facility] Ayesha Prado PA-C) Discharge Medications: New aspirin 325 mg Tablet 325 mg PO BID 42 Days Qty: 84 0RF celecoxib 200 mg Capsule 200 mg PO BID 30 Days Qty: 60 0RF oxycodone 10 mg tablet 10 mg PO Q4H PRN (Reason: Pain, Moderate (Pain Scale 4-6) 7 Days Qty: 42 0RF Rx Instructions: Partial Fill upon patient request. docusate sodium 100 mg Capsule 100 mg PO BID 30 Days Qty: 60 0RF Continued Centrum Silver Men 300-600-300 mcg Tablet 1 tab PO DAILY melatonin 10 mg Tablet 10 mg PO BEDTIME PRN (Reason: Insomnia) bupropion HCl 150 mg tablet extended release 24 hr 150 mg PO DAILY Biktarvy 50-200-25 mg tablet 1 tab PO DAILY duloxetine [Cymbalta] 30 mg capsule,delayed release(DR/EC) 30 mg PO DAILY bupropion HCl [Wellbutrin XL] 300 mg tablet extended release 24 hr 300 mg PO QAM omeprazole magnesium [Prilosec OTC] 20 mg tablet,delayed release (DR/EC) 20 mg PO DAILY duloxetine 60 mg capsule,delayed release(DR/EC) 60 mg PO DAILY buprenorphine-naloxone 8-2 mg film 1 film sublingual TID (DME) blood pressure test kit-large Kit See Rx Instructions .ROUTE .MEDSUPPLY Qty: 1 Rx Instructions: As directed albuterol sulfate 90 mcg/actuation HFA aerosol inhaler 2 puff inhalation Q6H PRN (Reason: Wheezing) (DME) walker Misc See Rx Instructions .ROUTE .MEDSUPPLY Qty: 1 0RF Rx Instructions: Folding front wheeled walker gabapentin 400 mg capsule 400 mg PO TID Discontinued ibuprofen 200 mg Tablet 400 mg PO Q6H PRN (Reason: Pain) Discharge Orders: Discharge Order (Routine); Ordered 01/10/23 Ordered By: Ayesha Prado Diet: Regular diet Activity on Discharge: Use cane or walker Stand Alone Forms: Patient Portal Discharge page Care Plan Goals: Restore function of joint Health Concerns: none Plan of Treatment: * Physical Therapy for Total hip arthroplasty: wbat, posterior precautions, gait training, ROM, strength * Limit stair climbing * No showering, no tub bath-keep dressing clean, dry and intact * No driving x6 weeks * Continue Aspirin twice a day x 6 weeks * Follow up with [facility] Orthopedics in 2 weeks: * --you will also have your first out patient PT gilberto on the day of your post op appt-so please plan on being in the office that day for an extended period of time. Assessment: as above
--- NOTE | 2023-01-10 09:08 | MHC.CM.PN ---
DP: PT HAS BEEN MEDICALLY CLEARED FOR DC HOME WITH [facility] FOR PT/OT. [facility] NOTIFIED OF TODAY'S DC. BROTHER WILL BE TRANSPORTING HOME.
[2023-01-12 15:14] LABS: SARS COV2 IgG Negative (Negative)
== END 2023-01-10 15:37 | disposition home health service (06) | DRG 470 ==
LOC: HO.SSSA 07:14 → HO.S3 14:13
PROVIDERS: Physician Assistant; Admitting Provider Orthopaedic Surgery; PCP Family Medicine; Visit Provider Orthopaedic Surgery
PROC: (CPT 27130; principal; 2023-01-08 09:40)
DX: M16.11 Unilateral primary osteoarthritis, right hip (principal); F11.20 Opioid dependence, uncomplicated; F41.9 Anxiety disorder, unspecified; Z21 Asymptomatic human immunodeficiency virus [HIV] infection status; G89.4 Chronic pain syndrome; E66.01 Morbid (severe) obesity due to excess calories; Z68.36 Body mass index [BMI] 36.0-36.9, adult; Z20.822 Contact with and (suspected) exposure to COVID-19; Z86.19 Personal history of other infectious and parasitic diseases; Z88.2 Allergy status to sulfonamides; Z79.82 Long term (current) use of aspirin; Z79.899 Other long term (current) drug therapy
CPT/HCPCS: 36415; 72170; 80048; 85014; 85018; 85025; 86769; 86850; 86900; 86901; 87635; 87640; 87641; 88305; 88311; 97110; 97116; 97162; 97166; 97530; C1776; J0131; J0690; J1170; J1885; J2250; J2405; J2795; J3010

== ENCOUNTER 2023-01-24 07:27 | Outpatient (RCR) | payer OTHER, SELFPAY ==
--- NOTE | 2023-01-24 15:15 | MHC.PT.EP ---
[facility] [place] Office [place] Office [place] Office [address] Mahamed Mata [address] [phone] F: [phone] F: [phone] F: [phone] F: [phone] Physical Therapy Plan of Care Date of Evaluation: Date of Surgery: 01/08/23 Diagnosis: S/P Rt AC Assessment: 52 YO MALE REF TO PT S/P LEFT AC, POSTERIOR APPROACH, ON 01/08/23. 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 OBJECTIVE FINDINGS: PO ROM DEFICITS RIGHT HIP, TIGHT HIP FLEXORS/ CALF MM AND GENU VALGUS TENDENCIES, (+) STRENGTH DEFICITS, AND MILD RIGHT PROX LE PAIN. Pt IS AWARE OF POSTERIOR APPROACH RESTRICTIONS/ PRECAUTIONS. FUNCTIONALLY, Pt IS LIMITED WITH BED MOB, DECR STANDING TAYLER, ALTERED GAIT MECHANICS, STAIR MGMT, AND RESTRICTED WITH MORE PHYSICALLY DEMANDING ADLs. Pt WOULD BENEFIT FROM PT AT THIS TIME TO GUIDE HIM IN HIS POST-OP COURSE, DEV A PROGR HEP, ADDRESS PAIN MGMT, AND OBTAINING MAXIMAL LEVEL OF FUNCTIONAL INDEPENDENCE. Frequency and Duration: The patient will be seen 2 x WK x 8 WKS Short Term Goals: *Pt'S RIGHT HIP PAIN DECR TO 2-3 *INCR FLEXIB IN PSOAS/ CALF MM TO IMPROVE EFFICIENCY OF GAIT ON LEVEL AND STAIRS *MONITOR/ ADDRESS SCAR MOB NEEDED *IMPROVE POSTURAL AWARENESS Intermediate Goals: Pt INDEP W HEP PROGRESSION AND SELF-SX MGMT STRATEGIES IN 10 WKS Pt RESUME REG ADLs EVIDENT W IMPROVED LEFI SCORE BY 8-10 POINTS (AT EVAL 21/80 ) IN 10 WKS Pt INCR LE STRENGTH BY 1 GRADE IN 10 WKS Treatment Plan: Modalities to reduce pain, spasms and effusion. Manual therapy to restore motion and function. Therapeutic exercise to improve strength and flexibility. Neuromuscular re-education for posture and balance. Therapeutic activities to return to functional activities of daily living. Electronically signed by: CAILIN NAVAS,PT Please sign and return to therapist. Thank you for your referral.
== END 2023-04-02 13:19 | disposition home or self-care (01) ==
LOC: HO.PT 07:27
PROVIDERS: Visit Provider Physician Assistant
DX: Z96.641 Presence of right artificial hip joint (principal)
CPT/HCPCS: 97162; 97530

== ENCOUNTER → 2023-01-24 14:06 | Outpatient (BNVA) | payer OTHER, SELFPAY | PROVIDERS: PCP Family Medicine; Visit Provider Physician Assistant ==

== ENCOUNTER 2023-03-20 14:18 | Outpatient (REF) | payer OTHER, SELFPAY ==
[2023-03-20 15:24] LABS: MANUAL DIFF FLAG NO
[2023-03-20 15:44] LABS: Basophils Percent Auto 0.7 % (0-2); Eosinophils Absolute Auto 0.2 X10*3/uL (0.0-0.4); Eosinophils Percent Auto 4.9 % (0-4); Hematocrit 39.1 % (42.0-52.0); Hemoglobin 11.9 g/dl (14.0-18.0); Imm Gran Abs Auto 0.01 X10*3/uL (0.00-0.03); Imm Gran Pct Auto 0.2 % (0.0-0.4); Lymphocytes Absolute Auto 1.4 X10*3/uL (1.2-4.9); Lymphocytes Percent Auto 29.9 % (20-40); Mean Corpuscular HGB Conc 30.4 g/dl (31.0-36.0); Mean Corpuscular Hemoglobin 25.3 pg (27.0-33.0); Mean Platelet Volume 8.7 fL (9.4-12.4); Monocytes Absolute Auto 0.5 X10*3/uL (0.1-1.2); Monocytes Percent Auto 11.5 % (2-11); Neutrophils Absolute Auto 2.4 x10*3/uL (2.0-8.3); Neutrophils Percent Auto 52.8 % (45-73); Platelet Count 247 X10*3/uL (160-400); Red Blood Count 4.71 X10*6/uL (4.60-5.80); White Blood Count 4.5 X10*3/uL (4.8-10.8)
[2023-03-20 16:11] LABS: Alanine Aminotransferase 22 U/L (0-40); Albumin Level 4.1 g/dL (3.5-5.0); Alkaline Phosphatase 102 U/L (39-117); Anion Gap 11 (12-20); Aspartate Amino Transferase 24 U/L (5-37); Bilirubin Total 0.3 mg/dL (0.0-1.0); Blood Urea Nitrogen 9 mg/dL (9-16); Calcium 9.4 mg/dL (8.4-10.2); Carbon Dioxide 26 mmol/L (22-29); Chloride 107 mmol/L (96-108); Estimated Glomerular Filt Rate > 60; Glucose Random 89 mg/dL (60-115); Potassium 4.3 mmol/L (3.3-5.1); Sodium 140 mmol/L (135-145); Total Protein 8.1 g/dL (6.5-8.0)
[2023-03-22 11:09] LABS: Absolute CD4 Count 336 cells/uL (490-1740); Absolute CD8 Count 651 cells/uL (180-1170); Absolute Lymphocytes 1410 cells/uL (850-3900); CD4 CD8 Ratio 0.52 (0.86-5.00); Percent CD4 Cells 24 % (30-61); Percent CD8 Cells 46 % (12-42)
== END 2023-03-20 14:19 | disposition home or self-care (01) ==
LOC: HO.LAB 14:18
PROVIDERS: PCP Family Medicine; Visit Provider Surgery
DX: K43.9 Ventral hernia without obstruction or gangrene (principal); K42.9 Umbilical hernia without obstruction or gangrene; B20 Human immunodeficiency virus [HIV] disease; E66.01 Morbid (severe) obesity due to excess calories; Z96.641 Presence of right artificial hip joint; Z96.651 Presence of right artificial knee joint; Z99.89 Dependence on other enabling machines and devices
CPT/HCPCS: 36415; 80053; 84134; 85025; 86360; 99212

== ENCOUNTER → 2023-04-05 12:52 | Outpatient (BNVA) | payer OTHER, SELFPAY | PROVIDERS: PCP Family Medicine; Visit Provider Surgery | DX: K43.9 Ventral hernia without obstruction or gangrene (principal); K42.9 Umbilical hernia without obstruction or gangrene; B20 Human immunodeficiency virus [HIV] disease; E66.01 Morbid (severe) obesity due to excess calories; Z86.19 Personal history of other infectious and parasitic diseases; Z96.641 Presence of right artificial hip joint; Z99.89 Dependence on other enabling machines and devices; Z68.33 Body mass index [BMI] 33.0-33.9, adult | CPT/HCPCS: 99212 ==

== ENCOUNTER 2023-05-01 09:46 | Outpatient (REF) | payer OTHER, SELFPAY ==
[2023-05-01 10:50] LABS: INTERNATIONAL NORM RATIO 0.9 (0.9-1.1); Prothrombin Time 11.4 SEC (11.1-13.3)
[2023-05-01 10:53] LABS: Partial Thromboplastin Time 31.4 SEC (26.0-36.4)
== END 2023-05-01 09:47 | disposition home or self-care (01) ==
LOC: HO.LAB 09:46
PROVIDERS: PCP Family Medicine; Visit Provider Surgery
DX: Z13.89 Encounter for screening for other disorder (principal)
CPT/HCPCS: 36415; 85610; 85730

== ENCOUNTER 2023-05-09 05:50 | Day surgery (SDC) | payer OTHER, SELFPAY ==
[2023-04-30 08:56] VITALS: BMI 35.5
--- NOTE | 2023-05-01 09:05 | HO.ANESPROP2 ---
HPI - Anesthesia Eval Consult details Narrative: 53yo M for Hernia Repair Ventral Laparoscopic, Hernia Repair Umbilical Laparoscopic,poss open w/echo mesh Suboxone daily s/p total hip 01/2023 with GA-ETT 7.5 PMFSH Active Problems Active Problems: All Active Problems (Updated 03/20/23 @ 14:58 by Sanchez Ivory MD) Morbid (severe) obesity due to excess calories (Acute) Ventral hernia (Acute) Ambulates with cane (Acute) Low back problem (Acute) Osteoarthritis of right knee (Acute) Scoliosis (Acute) Status post total hip replacement, right (Acute) History of arthroplasty of right knee (Acute) Umbilical hernia (Acute) Hx of hepatitis C (Acute) HIV (human immunodeficiency virus infection) (Acute) Past Medical History Medical History Anxiety Chronic pain disorder GERD (gastroesophageal reflux disease) HIV (human immunodeficiency virus infection) Hx of hepatitis C Insomnia Osteoarthritis of right hip Right knee pain Family History Family History Maternal Uncle Lung cancer Family history of problems with anesthesia: No Surgical History Surgical History (Updated 04/30/23 @ 08:47 by Mary Taylor RN) H/O dental uatsdin History of total right hip arthroplasty History of Problems with Anesthesia: No Social History Social History Household Members: Other Household Members Other:: nephew Housing: House Are you a primary daycare director to a significant other at home: No Do you presently have visiting nurse or other home services: Yes (GLASS TOUGHENING OPERATOR-nephew) Alcohol intake: current Alcohol intake frequency: holidays/special occasions only Patient Tobacco Use Status: Never used Tobacco Substance Use Type: Former Substance User and Opiates Substance Use Type Other:: 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 2012 Are you DNR?: No Advance Directives: No Advance Directives Information Provided: Yes (brochure mailed) Advance Directives on File: No Recently lost weight without trying: No Eating poorly because of decreased appetite: No Nutrition Risks: No Nutritional Risk Poor oral hygiene: Yes (cracked upper left molar (no dentist visits X ~ 20 years)) service: No Meds Allergies Allergy/AdvReac Type Severity Reaction Status Date / Time sulfamethoxazole Allergy Intermediate Rash Verified 04/05/23 12:54 [From Bactrim] trimethoprim [From Bactrim] Allergy Intermediate Rash Verified 04/05/23 12:54 Home Medications Medication Instructions Recorded Confirmed Last Taken Type albuterol sulfate 90 mcg/actuation 2 puff inhalation Q6H PRN Wheezing 05/05/21 04/30/23 01/09/22 History aerosol inhaler bictegravir 50 mg-emtricitabine 1 tab PO DAILY 05/05/21 04/30/23 01/07/23 History 200 mg-tenofovir alafenam 25 mg tablet (Biktarvy) blood pressure test kit-large #1 ea 05/05/21 12/24/22 Unknown History buprenorphine 8 mg-naloxone 2 mg 1 film sublingual TID 05/05/21 04/30/23 01/07/23 History sublingual film bupropion HCl 300 mg 24 hr tablet, 300 mg PO QAM 05/05/21 04/30/23 01/07/23 History extended release (Wellbutrin XL) duloxetine 30 mg capsule,delayed 30 mg PO DAILY 05/05/21 04/30/23 01/07/23 History release (Cymbalta) duloxetine 60 mg capsule,delayed 60 mg PO DAILY 05/05/21 04/30/23 01/07/23 History release omeprazole magnesium 20 mg 20 mg PO DAILY 05/05/21 04/30/23 01/07/23 History tablet,delayed release (Prilosec OTC) gabapentin 400 mg capsule 400 mg PO TID 12/24/22 04/30/23 01/07/23 History melatonin 10 mg tablet 10 mg PO BEDTIME PRN Insomnia 12/28/22 04/30/23 01/07/23 History rfaycbxt-mem-vqijy acid 300 1 tab PO DAILY 12/28/22 04/30/23 01/07/23 History mcg-lycopene 600 mcg-lutein 300 mcg tablet (Centrum Silver Men) bupropion HCl 150 mg 24 hr tablet, 150 mg PO DAILY 01/08/23 04/30/23 01/07/23 History extended release Exam Exam Date and Time: May 01, 2023904 Height,Weight and Vital Signs: Height 5 ft 7 in Weight 102.965 kg Pertinent Lab Results Pertinent Lab Results: Laboratory Tests 03/20/23 03/20/23 15:22 15:22 WBC 4.5 L Hgb 11.9 L D Hct 39.1 L D Plt Count 247 D Sodium 140 Potassium 4.3 Chloride 107 Carbon Dioxide 26 BUN 9 Creatinine 0.69 Assessment and Plan Assessment Anesthesia Assessment: Chart Reviewed Final Anesthetic Review Family History of Problems with Anesthesia: No History of Problems with Anesthesia: No
--- NOTE | 2023-05-02 06:27 | MHC.SHP ---
Pre-Procedural Eval Section A Date of Service: 05/02/23 The patient is an INPATIENT: No The History & Physical has been completed within 30 days and I have reviewed it.: Yes Section B Chief Complaint: Ventral/Umbilica hernia w/out obstruction/gangrene Allergies: Allergies Allergy/AdvReac Type Severity Reaction Status Date / Time sulfamethoxazole Allergy Intermediate Rash Verified 04/05/23 12:54 [From Bactrim] trimethoprim [From Bactrim] Allergy Intermediate Rash Verified 04/05/23 12:54 Plan I have reviewed the history and physical and performed a pertinent physical examination on my patient. No changes have occurred unless specified. Time Spent With Patient Time: Total time managing care of this patient today ____ minutes.
--- NOTE | 2023-05-02 07:15 | W.PM.OPN ---
Operative Note Operative Note Date of Service: 05/02/23
--- NOTE | 2023-05-07 08:42 | W.PM.OPN ---
Operative Note Operative Note Date of Service: 05/09/23 Narrative: Preop diagnosis: [Ventral hernia, 4.0 cm x 1.75 cm; umbilical hernia 1.2 cmx 2.6 cm?] Postop diagnosis: [] Procedure: [] Surgeon: Sanchez Ivory MD Assist: [] Anesthesia: [GET, local:] Estimated blood loss: [3cc] Specimen: [] Intraoperative findings: [] Indications: [The patient is a 53-year-old gentleman who had recent hip replacement surgery because of back/hip pain that was severe enough that he was walking with a cane. He also had an incarcerated ventral hernia and an umbilical hernia identified on CT. After successful hip replacement and minimal use of his cane, other than for balance, the option of a laparoscopic hernia repair with mesh to address both the ventral and umbilical hernia with primary closure and mesh repair was discussed with the patient and his physicians. Given his history of HIV, the the radical increased risk for mesh complications was discussed in the option of a 2nd opinion offered to the patient but declined. The inherent risks of bleeding, infection, hernia recurrence especially in the setting of weight gain, mesh complications that could require another operation or removal, chronic pain issues were all discussed. Activity restrictions postoperatively were reviewed and apparently understood. The patient seemed understand all of his options and wanted to proceed.] Procedure: [The patient was identified by myself in the preoperative holding area and his supraumbilical midline ventral hernia confirmed and marked. The plan to repair both his umbilical hernia and ventral hernia were confirmed. The option of rescheduling due to concerns of the patient's diet and weight gain was discussed but declined by the patient. The importance of maintaining a stable weight was discussed at length since weight gain will cause the hernia repair to fail; patient stated that he understood and wanted to proceed. The operative field hair had been clipped in preop holding. The patient was again identified in the operating suite and placed supine on the table. See anesthesia notes for full details regarding anesthesia care and management. The patient was then widely prepped and draped in the usual manner using chlorprep. An appropriate time-out was performed. The patient's abdomen was accessed through a stab incision in the left upper quad using preemptive local. Veress needle was placed without incident, an appropriate drop test performed and used to obtain a pneumoperitoneum of 15 mmHg using carbon dioxide. Opening pressure was 6 mmHg. The abdomen was then accessed with a 5 mm/30 degree laparoscopic for a 5 mm optical trocar without incident through the anterior axillary line at the level of the umbilicus. I then inspected for evidence of injury from either the Veress needle or trocar and found none. The patient was positioned in gentle Trendelenburg position and additional 5 mm trocars placed using preemptive local under direct laparoscopic vision in the patient's left lower quadrant and a 12 mm placed in the left upper quadrant. Laparoscopy confirmed both umbilical & ventral hernia containing viable omentum which was carefully reduced using a grasper. Next, the hernia sac was excised, placed in an Endo-Catch bag and delivered for permanent section. The fascial defect was then sutured closed using an 0 V lock suture, laparoscopically. Sub peritoneal fat was dissected circumferentially using a grasper and LigaSure or, 5 mm [place] tip to allow placement of a mesh. An additional right-sided 5 mm port was required to circumferentially tack the mesh in place. It was placed under direct laparoscopic vision with preemptive analgesia. Hemostasis was present. Next, Echo mesh measuring 4x6 Ventralite mesh was inserted through the 12 mm trocar and deployed. A stab incision was made through the abdominal wall skin over the hernia, a suture passer used to grasp the blue inflation tube which was then delivered, cut and inflated with the Austin-Marlin. The mesh was oriented with overlap and absorbable tacks used to secure the mesh. The abdomen was then deflated to 9 mmHg, the bed return to neutral and trocars removed. The 12 mm fascia was closed 0 Polysorb suture passed with the Austin-Marlin under direct laparoscopic vision and skin was closed with 4-0 Monocryl subcuticular sutures. The abdomen was then washed and dried, and Mastisol and Steri-Strips applied followed by Band-Aids. A cotton ball and Tegaderm was placed in the umbilicus. Patient tolerated the procedure well was sent to the recovery area in stable condition. All sponge and instrument counts were correct x2. ]
--- NOTE | 2023-05-08 12:45 | MHC.SHP ---
Pre-Procedural Eval Section A Date of Service: 05/08/23 The patient is an INPATIENT: No The History & Physical has been completed within 30 days and I have reviewed it.: Yes Section B Chief Complaint: Ventral/Umbilica hernia w/out obstruction/gangrene Allergies: Allergies Allergy/AdvReac Type Severity Reaction Status Date / Time sulfamethoxazole Allergy Intermediate Rash Verified 04/05/23 12:54 [From Bactrim] trimethoprim [From Bactrim] Allergy Intermediate Rash Verified 04/05/23 12:54 Plan I have reviewed the history and physical and performed a pertinent physical examination on my patient. No changes have occurred unless specified. Time Spent With Patient Time: Total time managing care of this patient today ____ minutes.
[2023-05-09 06:21] VITALS: BP 135/76; PULSE 90; RESP 20; TEMP 36.8; O2SAT 96
[2023-05-09] MEDS: Lactated Ringers 1,000 ML 100 ML IVCONT (06:42)
--- NOTE | 2023-05-09 08:00 | P.CONAN_ITS ---
[facility] Active Problems Active Problems: All Active Problems (Updated 03/20/23 @ 14:58 by Sanchez Ivory MD) Morbid (severe) obesity due to excess calories (Acute) Ventral hernia (Acute) Ambulates with cane (Acute) Low back problem (Acute) Osteoarthritis of right knee (Acute) Scoliosis (Acute) Status post total hip replacement, right (Acute) History of arthroplasty of right knee (Acute) Umbilical hernia (Acute) Hx of hepatitis C (Acute) HIV (human immunodeficiency virus infection) (Acute) Past Medical History Medical History Anxiety Chronic pain disorder GERD (gastroesophageal reflux disease) HIV (human immunodeficiency virus infection) Hx of hepatitis C Insomnia Osteoarthritis of right hip Right knee pain Family History Family History Maternal Uncle Lung cancer Family history of problems with anesthesia: No Surgical History Surgical History (Updated 04/30/23 @ 08:47 by Mary Taylor RN) H/O dental episcopal History of total right hip arthroplasty History of Problems with Anesthesia: No Social History Social History Household Members: Other Household Members Other:: nephew Housing: House Are you a primary primary care coordinator to a significant other at home: No Do you presently have visiting nurse or other home services: Yes (DRAPERY ESTIMATOR-nephew) Alcohol intake: current Alcohol intake frequency: holidays/special occasions only Patient Tobacco Use Status: Never used Tobacco Substance Use Type: Former Substance User and Opiates Substance Use Type Other:: 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 2012 Are you DNR?: No Advance Directives: No Advance Directives Information Provided: Yes (brochure mailed) Advance Directives on File: No Recently lost weight without trying: No Eating poorly because of decreased appetite: No Nutrition Risks: No Nutritional Risk Poor oral hygiene: Yes (cracked upper left molar (no dentist visits X ~ 20 years)) service: No Meds Allergies Allergy/AdvReac Type Severity Reaction Status Date / Time sulfamethoxazole Allergy Intermediate Rash Verified 04/05/23 12:54 [From Bactrim] trimethoprim [From Bactrim] Allergy Intermediate Rash Verified 04/05/23 12:54 Active Medications: Current Medications Lactated Ringer's (Lr) 1,000 mls @ 100 mls/hr IVCONT .Q10H ESTEBAN Last Admin: 05/09/23 06:42 Dose: 100 mls/hr Home Medications Medication Instructions Recorded Confirmed Last Taken Type albuterol sulfate 90 mcg/actuation 2 puff inhalation Q6H PRN Wheezing 05/05/21 04/30/23 01/09/22 History aerosol inhaler bictegravir 50 mg-emtricitabine 1 tab PO DAILY 05/05/21 04/30/23 05/08/23 History 200 mg-tenofovir alafenam 25 mg tablet (Biktarvy) blood pressure test kit-large #1 ea 05/05/21 12/24/22 Unknown History buprenorphine 8 mg-naloxone 2 mg 1 film sublingual TID 05/05/21 04/30/23 05/08/23 History sublingual film bupropion HCl 300 mg 24 hr tablet, 300 mg PO QAM 05/05/21 04/30/23 01/07/23 History extended release (Wellbutrin XL) duloxetine 30 mg capsule,delayed 30 mg PO DAILY 05/05/21 04/30/23 01/07/23 History release (Cymbalta) duloxetine 60 mg capsule,delayed 60 mg PO DAILY 05/05/21 04/30/23 01/07/23 History release omeprazole magnesium 20 mg 20 mg PO DAILY 05/05/21 04/30/23 01/07/23 History tablet,delayed release (Prilosec OTC) gabapentin 400 mg capsule 400 mg PO TID 12/24/22 04/30/23 05/08/23 History melatonin 10 mg tablet 10 mg PO BEDTIME PRN Insomnia 12/28/22 04/30/23 01/07/23 History zuoluoqz-xm-fjfzd 300 mcg-K 60 1 tab PO DAILY 12/28/22 04/30/23 01/07/23 History mcg-lycop 600 mcg-lutein 300 mcg tablet (Centrum Silver Men) bupropion HCl 150 mg 24 hr tablet, 150 mg PO DAILY 01/08/23 04/30/23 01/07/23 History extended release Exam Exam Date and Time: May 09, 2023 0800 Height,Weight and Vital Signs: Height 5 ft 7 in Weight 102.965 kg Last Vital Signs Temp 98.3 F 05/09/23 06:21 Pulse 90 05/09/23 06:21 Resp 20 05/09/23 06:21 BP 135/76 05/09/23 06:21 Pulse Ox 96 05/09/23 06:21 O2 Del Method Room Air 05/09/23 06:21 Airway Mallampati Class: III TM Dist: >3cm Neck ROM: Full Loose/Missing/Broken Teeth: No Heart: rrr Lungs: clear Assessment and Plan Final Anesthetic Review Family History of Problems with Anesthesia: No History of Problems with Anesthesia: No ASA Class: III Final Preanesthetic Review: No Changes in Pt Med Stat, Meds/Allgs Chart Reviewed, Consent Obtained/Reviewed and Anes Risks/Benef Reviewed Patient Risk: Intermediate Procedure Risk: Intermediate Anesthetic Plan Anesthetic Plan: GA Disposition: Standard PACU
--- NOTE | 2023-05-09 08:01 | PC.NURSE ---
pt voided at 0730 and 0801 liter infused ls clear pwd denies pain aware careplan
== END 2023-05-09 12:20 | disposition home or self-care (01) ==
LOC: HO.SSS 05:50
PROVIDERS: PCP Family Medicine; Visit Provider Surgery
PROC: 0WQF4ZZ Repair Abdominal Wall, Percutaneous Endoscopic Approach (ICD-10-PCS; CPT 49593; principal; 2023-05-09 08:30)
PROC: 0WQF4ZZ Repair Abdominal Wall, Percutaneous Endoscopic Approach (ICD-10-PCS; CPT 49593; 2023-05-09 08:30)
DX: K42.9 Umbilical hernia without obstruction or gangrene (principal); K43.9 Ventral hernia without obstruction or gangrene; B20 Human immunodeficiency virus [HIV] disease; G89.29 Other chronic pain; E66.01 Morbid (severe) obesity due to excess calories; Z68.33 Body mass index [BMI] 33.0-33.9, adult; Z86.19 Personal history of other infectious and parasitic diseases; M16.11 Unilateral primary osteoarthritis, right hip; Z96.641 Presence of right artificial hip joint; M25.561 Pain in right knee; Z99.89 Dependence on other enabling machines and devices; Z79.899 Other long term (current) drug therapy; Z88.2 Allergy status to sulfonamides; Z88.1 Allergy status to other antibiotic agents; F11.91 Opioid use, unspecified, in remission; F19.91 Other psychoactive substance use, unspecified, in remission
CPT/HCPCS: 49593; 88302; C1713; C1781; J0131; J0330; J0690; J1100; J2250; J2371; J2405; J3010

== ENCOUNTER → 2023-05-09 05:50 | Outpatient (BNV) | payer OTHER, SELFPAY | PROVIDERS: PCP Family Medicine; Visit Provider Surgery | DX: K43.9 Ventral hernia without obstruction or gangrene (principal); K42.9 Umbilical hernia without obstruction or gangrene | CPT/HCPCS: 49594 ==

== ENCOUNTER 2023-05-17 13:25 | Outpatient (AMB) | payer OTHER, SELFPAY ==
--- NOTE | 2023-05-17 13:30 | A.OFFVIS_ITS ---
Intake Vital Signs 05/17/23 13:31 Height 5 ft 7 in Weight 231 lb BMI 36.2 BP 142/86 H Blood Pressure Location Lt brachial Position Sitting Pulse 66 Intake Visit Reasons: S/P ventral & umbilical hernia repair w/mesh Intake Note: Patient here s/p ventral and umbilical hernia repair w/mesh. Patient c/o minimal pain @ LUQ. Reports incisions healing well. Denies bleeding, oozing or itch. Finished rx pain meds yesterday. Pupil Personnel Worker Required: No Java Software Developer: Java Software Developer offered & declined Accompanied by: Self / Same As Patient Allergies sulfamethoxazole [From Bactrim] Allergy (Intermediate, Verified 05/17/23 13:33) Rash trimethoprim [From Bactrim] Allergy (Intermediate, Verified 05/17/23 13:33) Rash Medication List - Last Reconciled 05/17/23 by Sanchez Ivory MD albuterol sulfate 90 mcg/actuation 2 puffs inhalation Q6H PRN aspirin 325 mg PO BID 42 days ecewcybfn-oyjjuspn-loihigg ala 50-200-25 mg (Biktarvy) 1 tab PO DAILY blood pressure test kit-large As directed buprenorphine-naloxone 8-2 mg 1 film sublingual TID bupropion HCl 150 mg PO DAILY bupropion HCl (Wellbutrin XL) 300 mg PO QAM celecoxib 200 mg PO BID duloxetine 60 mg PO DAILY duloxetine (Cymbalta) 30 mg PO DAILY gabapentin 400 mg PO TID melatonin 10 mg PO BEDTIME PRN mu-bzy-kjffn-Z6-xlsymxx-ebnnfi [id number] mcg (Centrum Silver Men) 1 tab PO DAILY omeprazole magnesium (Prilosec OTC) 20 mg PO DAILY oxycodone 5 mg PO Q4-6H PRN walker Folding front wheeled walker HPI HPI Comments History of Present Illness Details The patient returns for follow-up after a laparoscopic ventral and umbilical hernia repair with IPOM Ventralite Echo mesh 05/09/23. The patient denies interval change to his health history but notes that he is having expected abdominal pain specially in the left upper quadrant and periumbilical area where the mesh was placed. He reports he is tolerating his diet, his bowels are working but he has had a problem with rectal bleeding for several years. He noted that he never followed through on a recommended colonoscopy. He notes he is still taking approximately 3 oxycodone and a 24 hour.. He has resumed his Suboxone and question whether not a refill of oxycodone would be advised. Since he reports that the pain is interfering with sleep, I think it is appropriate and we also discussed the use of ibuprofen and a limited role with Tylenol. Patient notes that he has previously been advised to minimize ibuprofen due to kidney concerns. [facility] Medical History Anxiety Chronic pain disorder GERD (gastroesophageal reflux disease) HIV (human immunodeficiency virus infection) Hx of hepatitis C Insomnia Osteoarthritis of right hip Right knee pain Surgical History H/O dental sikhism History of total right hip arthroplasty Family History Maternal Uncle Lung cancer Social History Household Members: Other Household Members Other:: nephew Housing: House Are you a primary progressive care unit registered nurse to a significant other at home: No Do you presently have visiting nurse or other home services: Yes (BELLY DANCER-nephew) Alcohol intake: current Alcohol intake frequency: holidays/special occasions only Patient Tobacco Use Status: Never used Tobacco Substance Use Type: Former Substance User and Opiates service: No Physical Exam Vital Signs: Last Vital Signs Pulse 66 05/17/23 13:31 BP 142/86 H 05/17/23 13:31 BMI result Body Mass Index 36.2 On exam, he is nontoxic and in good spirits His sclera anicteric He is in no acute respiratory distress His abdominal incisions are well healed with no evidence of cellulitis. The Band-Aids and Steri-Strips were removed and all incisions look good. There is minimal supraumbilical induration and no evidence of a seroma. Results Reviewed Results Reviewed: Patient was advised that the pathology from the day of surgery was consistent with a hernia sac and some fatty tissue. Assessment & Plan Assessment & Plan (1) H/O ventral hernia repair: Code(s): Z98.890 - Other specified postprocedural states; Z87.19 - Personal history of other diseases of the digestive system (2) Ventral hernia: Code(s): K43.9 - Ventral hernia without obstruction or gangrene (3) Status post total hip replacement, right: Code(s): Z96.641 - Presence of right artificial hip joint (4) Morbid (severe) obesity due to excess calories: Code(s): E66.01 - Morbid (severe) obesity due to excess calories (5) Ambulates with cane: Code(s): Z99.89 - Dependence on other enabling machines and devices (6) Umbilical hernia: Code(s): K42.9 - Umbilical hernia without obstruction or gangrene Plan Activity restrictions, bowel regiment & pain management to include limited ibuprofen, Tylenol and oxycodone were reviewed and apparently understood. The importance of maintaining or losing weight to prevent hernia recurrence was also reviewed. The patient was provided some office Education materials about a high-protein/high fiber/low-carbohydrate diet and asked if he could get dietary information so I have carbon copied Radha Becerra, our dietitian. I had placed a consultation with the patient in Radha Becerra previously, but the patient has extensive transportation issues and may benefit from a tele visit regarding dietary options to prevent obesity. A refill for oxycodone, #20 tablets was sent to the patient's pharmacy electronically. I am aware of the patient's Suboxone but he notes that he is having difficulty sleeping secondary to pain and is unable to take that regularly recommended ibuprofen/Tylenol as recommended. I will see the patient back in 1 month. He will contact me before then if he has problems. The patient will need referral back to his PCP regarding his rectal bleeding concerns for GI evaluation. Medications: New oxycodone Partial Fill upon patient request. MD aware of suboxone, pt is post-op 5 mg PO Q4-6H PRN 20 tabs 0RF pain Coding Level of Care Code Global (14214) Diagnoses H/O ventral hernia repair Z98.890; Z87.19 Ventral hernia K43.9 Status post total hip replacement, right Z96.641 Morbid (severe) obesity due to excess calories E66.01 Ambulates with cane Z99.89 Umbilical hernia K42.9
[2023-05-17 13:31] VITALS: BP 142/86; PULSE 66; BMI 36.2
== END 2023-05-17 13:55 | disposition home or self-care (01) ==
LOC: HO.HGS 13:25
PROVIDERS: PCP Family Medicine; Visit Provider Surgery
DX: K43.9 Ventral hernia without obstruction or gangrene (principal); K42.9 Umbilical hernia without obstruction or gangrene; Z87.19 Personal history of other diseases of the digestive system
CPT/HCPCS: 99213

== ENCOUNTER → 2023-05-17 13:25 | Outpatient (BNVA) | payer OTHER, SELFPAY | PROVIDERS: PCP Family Medicine; Visit Provider Surgery | DX: K43.9 Ventral hernia without obstruction or gangrene (principal); K42.9 Umbilical hernia without obstruction or gangrene; E66.01 Morbid (severe) obesity due to excess calories; Z68.36 Body mass index [BMI] 36.0-36.9, adult; Z87.19 Personal history of other diseases of the digestive system; Z96.641 Presence of right artificial hip joint; Z98.890 Other specified postprocedural states; Z99.89 Dependence on other enabling machines and devices; Z79.891 Long term (current) use of opiate analgesic | CPT/HCPCS: 99212 ==

== ENCOUNTER 2023-07-29 12:42 | Outpatient (REF) | payer OTHER, SELFPAY ==
[2023-07-29 13:34] LABS: MANUAL DIFF FLAG NO
[2023-07-29 13:42] LABS: Basophils Percent Auto 0.5 % (0-2); Eosinophils Absolute Auto 0.2 X10*3/uL (0.0-0.4); Eosinophils Percent Auto 4.7 % (0-4); Hematocrit 39.3 % (42.0-52.0); Hemoglobin 12.4 g/dl (14.0-18.0); Imm Gran Abs Auto 0.01 X10*3/uL (0.00-0.03); Imm Gran Pct Auto 0.2 % (0.0-0.4); Lymphocytes Absolute Auto 1.6 X10*3/uL (1.2-4.9); Lymphocytes Percent Auto 36.3 % (20-40); Mean Corpuscular HGB Conc 31.6 g/dl (31.0-36.0); Mean Corpuscular Hemoglobin 27.4 pg (27.0-33.0); Mean Corpuscular Volume 86.9 fL (80.0-98.0); Mean Platelet Volume 8.5 fL (9.4-12.4); Monocytes Absolute Auto 0.5 X10*3/uL (0.1-1.2); Monocytes Percent Auto 11.3 % (2-11); Neutrophils Absolute Auto 2.1 x10*3/uL (2.0-8.3); Platelet Count 214 X10*3/uL (160-400); Red Blood Count 4.52 X10*6/uL (4.60-5.80); White Blood Count 4.4 X10*3/uL (4.8-10.8)
[2023-07-29 14:05] LABS: Estimated Average Glucose 105 mg/dL; Hemoglobin A1c % 5.3 % (<6.0)
[2023-07-29 14:44] LABS: Alanine Aminotransferase 25 U/L (0-40); Albumin Level 4.2 g/dL (3.5-5.0); Alkaline Phosphatase 96 U/L (39-117); Anion Gap 12 (12-20); Aspartate Amino Transferase 26 U/L (5-37); Bilirubin Direct < 0.2 mg/dL (0.0-0.5); Bilirubin Total 0.2 mg/dL (0.0-1.0); Blood Urea Nitrogen 9 mg/dL (9-16); Calcium 9.8 mg/dL (8.4-10.2); Carbon Dioxide 23 mmol/L (22-29); Chloride 107 mmol/L (96-108); Cholesterol 176 mg/dL (<200); Estimated Glomerular Filt Rate > 60; Glucose Random 91 mg/dL (60-115); HDL Cholesterol 35 mg/dL (>40); LDL Cholesterol Calculated 112 mg/dL (<100); Magnesium 2.1 mg/dL (1.6-2.6); Potassium 4.2 mmol/L (3.3-5.1); Sodium 138 mmol/L (135-145); Triglycerides 148 mg/dL (<150)
[2023-07-29 14:55] LABS: Ferritin 43 ng/mL (20-250); TSH reflex Free T4 4.17 uIU/mL (0.32-4.0); Vitamin D 25-OH Total 40.6 ng/mL (>30)
[2023-07-29 16:15] LABS: Free T4 (Free Thyroxine) 0.87 ng/dL (0.71-1.85)
[2023-07-30 07:43] LABS: Absolute CD3 Count 1212 cells/uL (840-3060); Absolute CD4 Count 437 cells/uL (490-1740); Absolute CD8 Count 755 cells/uL (180-1170); Absolute Lymphocytes 1744 cells/uL (850-3900); CD4 CD8 Ratio 0.58 (0.86-5.00); Percent CD3 Cells 70 % (57-85); Percent CD4 Cells 25 % (30-61); Percent CD8 Cells 43 % (12-42)
[2023-07-31 13:48] LABS: HIV RNA PCR Qn Copies <20 DETECTED copies/mL (NOT DETECTED); HIV RNA PCR Qn Log Copies <1.30 DETECTED (NOT DETECTED)
[2023-08-02 14:09] LABS: VITAMIN D (1,25 OH) D3 39 pg/mL; Vit D (1,25-Dihydroxy) Total 39 pg/mL (18-72); Vitamin D (1,25 OH) D2 <8 pg/mL
== END 2023-07-29 12:43 | disposition home or self-care (01) ==
LOC: HO.HHCL 12:42
PROVIDERS: Visit Provider Family Medicine
DX: B20 Human immunodeficiency virus [HIV] disease (principal); E66.9 Obesity, unspecified; S52.531D Colles' fracture of right radius, subsequent encounter for closed fracture with routine healing; D50.9 Iron deficiency anemia, unspecified; D64.9 Anemia, unspecified; E66.01 Morbid (severe) obesity due to excess calories; Z13.29 Encounter for screening for other suspected endocrine disorder; Z13.1 Encounter for screening for diabetes mellitus
CPT/HCPCS: 36415; 80048; 80061; 80076; 82306; 82652; 82728; 82746; 83036; 83735; 84439; 84443; 85025; 86359; 86360; 87536

== ENCOUNTER 2024-06-15 15:54 | Outpatient (REF) | payer OTHER, SELFPAY ==
[2024-06-15 17:38] LABS: MANUAL DIFF FLAG NO
[2024-06-15 17:45] LABS: Basophils Percent Auto 0.6 % (0-2); Eosinophils Absolute Auto 0.2 X10*3/uL (0.0-0.4); Eosinophils Percent Auto 4.8 % (0-4); Hematocrit 39.6 % (42.0-52.0); Hemoglobin 12.8 g/dl (14.0-18.0); Imm Gran Abs Auto 0.02 X10*3/uL (0.00-0.03); Imm Gran Pct Auto 0.4 % (0.0-0.4); Lymphocytes Absolute Auto 1.6 X10*3/uL (1.2-4.9); Lymphocytes Percent Auto 34.5 % (20-40); Mean Corpuscular HGB Conc 32.3 g/dl (31.0-36.0); Mean Corpuscular Hemoglobin 28.2 pg (27.0-33.0); Mean Corpuscular Volume 87.2 fL (80.0-98.0); Mean Platelet Volume 8.5 fL (9.4-12.4); Monocytes Absolute Auto 0.6 X10*3/uL (0.1-1.2); Monocytes Percent Auto 12.8 % (2-11); Neutrophils Absolute Auto 2.2 x10*3/uL (2.0-8.3); Neutrophils Percent Auto 46.9 % (45-73); Platelet Count 239 X10*3/uL (160-400); Red Blood Count 4.54 X10*6/uL (4.60-5.80); Red Cell Distribution Width 12.8 % (11.0-16.0); White Blood Count 4.8 X10*3/uL (4.8-10.8)
[2024-06-15 18:26] LABS: Alanine Aminotransferase 21 U/L (0-40); Albumin Level 4.3 g/dL (3.5-5.0); Alkaline Phosphatase 91 U/L (39-117); Anion Gap 13 (12-20); Aspartate Amino Transferase 23 U/L (5-37); Bilirubin Total 0.2 mg/dL (0.0-1.0); Blood Urea Nitrogen 11 mg/dL (9-16); Calcium 9.5 mg/dL (8.4-10.2); Carbon Dioxide 23 mmol/L (22-29); Chloride 106 mmol/L (96-108); Estimated Glomerular Filt Rate > 60; Glucose Random 93 mg/dL (60-115); Potassium 4.3 mmol/L (3.3-5.1); Sodium 138 mmol/L (135-145); Total Protein 8.2 g/dL (6.5-8.0)
[2024-06-16 13:33] LABS: HIV RNA PCR Qn Copies 67 copies/mL (NOT DETECTED); HIV RNA PCR Qn Log Copies 1.83 (NOT DETECTED)
[2024-06-16 14:04] LABS: CT PCR NOT DETECTED (Not Detect.); NG PCR NOT DETECTED (Not Detect.)
[2024-06-17 13:18] LABS: HCV Log PCR <1.18 NOT DETECTED Log IU/mL (NOT DETECTED); HepC Viral Load <15 NOT DETECTED IU/mL (NOT DETECTED)
[2024-06-17 13:42] LABS: RPR Rapid Plasma Reagin NON-REACTIVE (NON-REACTIVE)
[2024-06-18 06:39] LABS: TS Negative Control Passed; TS Panel A 0; TS Panel B 0; TS Positive Control Passed; TSpotTB Negative (Negative)
[2024-06-18 18:33] LABS: Absolute CD3 Count 1078 cells/uL (840-3060); Absolute CD4 Count 354 cells/uL (490-1740); Absolute CD8 Count 729 cells/uL (180-1170); Absolute Lymphocytes 1441 cells/uL (850-3900); CD4 CD8 Ratio 0.49 (0.86-5.00); Percent CD3 Cells 75 % (57-85); Percent CD4 Cells 25 % (30-61); Percent CD8 Cells 51 % (12-42)
== END 2024-06-15 15:55 | disposition home or self-care (01) ==
LOC: HO.HHCL 15:54
PROVIDERS: Visit Provider Student in an Organized Health Care Education/Training Program
DX: B20 Human immunodeficiency virus [HIV] disease (principal)
CPT/HCPCS: 36415; 80053; 85025; 86359; 86360; 86481; 86592; 87491; 87522; 87536; 87591

== ENCOUNTER 2024-08-03 13:56 | Outpatient (REF) | payer OTHER, SELFPAY ==
--- NOTE | ~2024-08-03 | XR_ITS ---
EXAMINATION: XR CHEST CLINICAL INFORMATION: Ongoing productive cough, rhonchi on exam to rule out pneumonia COMPARISON: 01/05/2019 TECHNIQUE: 2 views of the chest were obtained. FINDINGS: There is no gross pneumothorax. Lung volumes are low. Heart size within normal limits. Degenerative changes in the thoracic spine. No significant pleural effusion. No new focal consolidation. XR/XR chest 2V IMPRESSION: No new focal consolidation to suggest pneumonia. This study was presented today August 04, 2024 for interpretation. Stat results provided at this time as requested by referring provider. Electronically signed by: Magda Holguin MD 08/04/2024 05:48 AM EDT
[2024-08-07 00:39] LABS: C.Trachomatis RNA TMA, Rectal NOT DETECTED; N.Gonorrhoeae RNA TMA, Rectal NOT DETECTED
[2024-08-07 22:29] LABS: C. Trachomatis RNA TMA, Throat NOT DETECTED; N. gonorrhoeae RNA TMA, Throat NOT DETECTED
== END 2024-08-03 13:57 | disposition home or self-care (01) ==
LOC: HO.HHCLNP 13:56
PROVIDERS: Visit Provider Student in an Organized Health Care Education/Training Program
DX: Z21 Asymptomatic human immunodeficiency virus [HIV] infection status (principal); J40 Bronchitis, not specified as acute or chronic
CPT/HCPCS: 71046; 87491; 87591; 88112

== ENCOUNTER 2024-09-15 15:59 | Outpatient (REF) | payer OTHER, SELFPAY | END 2024-09-15 16:00 | disposition home or self-care (01) | LOC: HO.HHCX 15:59 | PROVIDERS: PCP Family Medicine; Visit Provider Family Medicine | DX: M25.511 Pain in right shoulder (principal); M25.512 Pain in left shoulder | CPT/HCPCS: 73030 ==

== ENCOUNTER 2024-09-22 12:36 | Outpatient (AMB) | payer OTHER, SELFPAY ==
--- NOTE | 2024-09-22 12:49 | MHC.OFFVIS ---
Intake Visit Reasons: New Prob - B/L shoulder pain Intake Note: Stuart is a 54 year old right hand dominant male who presents today for a evaluation of his B/L Shoulder pain. Patient reports ongoing pain for 2 years. He mentions that his left shoulder is worse than the right. Patient states that his pain is around his shoulder and stays in the same area. Pain is worse when he is laying on his side. ROM is limited. Patient has tried Ibuprofen 800 mg which gives him relief. Allergies sulfamethoxazole [From Bactrim] Allergy (Intermediate, Verified 09/22/24 12:55) Rash trimethoprim [From Bactrim] Allergy (Intermediate, Verified 09/22/24 12:55) Rash HPI HPI New Prob - B/L shoulder pain: Details: 54-year-old nytjk-ptvq-nxdpybmx male who presents in the office today for an evaluation of right shoulder pain. I last saw the patient in the office on 01/24/23 for 2 weeks status post right total hip arthroplasty, which was performed on 01/09/[address] Hernandez. The patient saw his PCP, Dr. Kaylee Mazariegos, on 08/12/24 for bilateral shoulder pain. He completed physical therapy for bilateral shoulder pain on 07/29/2023. He saw a specialist in the past. X-rays of the right shoulder were ordered. He was referred to orthopedic surgeons for further evaluation and treatment. While in the office today, the patient reports experiencing bilateral shoulder pain; the left shoulder is worse than the right shoulder. The pain has been ongoing for the past 2 years. He also reports limited range of motion. He mentions that his pain is around his shoulder and localized in the same area. Pain aggravates when lying on his sides. He has tried ibuprofen 800 mg with relief. [facility] Medical History (Updated 09/22/24 @ 13:27 by Ayleen Ruby) Chronic pain disorder Right knee pain Insomnia GERD (gastroesophageal reflux disease) Hx of hepatitis C Anxiety Osteoarthritis of right hip HIV (human immunodeficiency virus infection) Surgical History (Updated 06/17/23 @ 07:46 by Berenice Arriaza CMA) History of laparoscopy History of total right hip arthroplasty H/O dental baptism Family History Maternal Uncle Lung cancer Social History Household Members: Other Household Members Other:: nephew Housing: House Are you a primary infant childcare provider to a significant other at home: No Do you presently have visiting nurse or other home services: Yes (PERSONAL COACH-nephew) Alcohol intake: current Alcohol intake frequency: holidays/special occasions only Comment: recent THR 01/2023 Patient Tobacco Use Status: Never used Tobacco Substance Use Type: Former Substance User and Opiates service: No Review of Systems Const All systems reviewed & are unremarkable except as noted in HPI and below Physical Exam Const General: cooperative, healthy appearing and no acute distress Resp Effort & Inspection: normal respiratory effort and able to speak in complete sentences Cardio Rate: regular rate Peripheral pulses: Peripheral pulses 2+ throughout GI Palpation (GI): Soft to palpation Skin Lesions: no lesions Rashes: no rashes Extrem Other: Bilateral shoulder: 80 degrees forward flexion. 45 degrees abduction. Pain with crossbody reach. Unable to assess an empty can or drop arm due to range of motion restriction. NVI. Office Procedures AMB Joint Injection/Aspiration Joint Injection/Aspiration Primary Site: left shoulder Secondary Site: right shoulder Prep: site was prepped using aseptic technique, ethochloride spray was applied and injection warnings given Injected: 80 mg of, DepoMedrol, with 8 mL of (2% plain lido ) and in the subcromial space Approach Used: posterolateral Procedure: The patient tolerated the procedure well, but had some pain with the injection and there was some relief with the local anesthesia Coding 69623 - Large joint Procedure code (CPT) selection complete Assessment & Plan Assessment & Plan (1) Osteoarthritis of shoulders, bilateral: Code(s): M19.011 - Primary osteoarthritis, right shoulder; M19.012 - Primary osteoarthritis, left shoulder Category: Medical Plan Mr. Gurdeep Mckay is a 54-year-old male who presents in the office today for an evaluation of right shoulder pain. I last saw the patient in the office on 01/24/23 for 2 weeks status post right total hip arthroplasty, which was performed on 01/09/[address] Hernandez. The patient saw his PCP, Dr. Kaylee Mazariegos, on 08/12/24 for bilateral shoulder pain. He completed physical therapy for bilateral shoulder pain on 07/29/2023. He saw a specialist in the past. X-rays of the right shoulder were ordered. He was referred to orthopedic surgeons for further evaluation and treatment. While in the office today, the patient reports experiencing bilateral shoulder pain; the left shoulder is worse than the right shoulder. The pain has been ongoing for the past 2 years. He also reports limited range of motion. He mentions that his pain is around his shoulder and localized in the same area. Pain aggravates when lying on his sides. He has tried ibuprofen 800 mg with relief. The patient was offered a cortisone injection in the bilateral shoulder with 80 mg of Depo-Medrol. The patient was explained the risks, benefits, and alternatives to receiving this injection. After receiving consent for the injection, the patient had the procedure done while in the office today. The patient tolerated the procedure well with no complication. Should the cortisone injection in the bilateral shoulder not provide any relief, then he will follow-up with Dr. Hernandez for further discussion of possible total shoulder replacement. Follow-up will be PRN, or sooner if needed. Patient Instructions: Scribed by Ayleen Ruby curator medical museum, for Ayesha Prado PA-C on 09/22/24 at 1:20 pm EST. Coding Level of Care Code Est Pt Level 3 (64846) Diagnoses Osteoarthritis of shoulders, bilateral M19.011; M19.012 CPT Codes Coding - 87086 Large joint: 13309 - Large joint ([id number])
== END 2024-09-22 13:16 | disposition home or self-care (01) ==
PROVIDERS: PCP Family Medicine; Visit Provider Physician Assistant
DX: M19.011 Primary osteoarthritis, right shoulder (principal); M19.012 Primary osteoarthritis, left shoulder
CPT/HCPCS: 20610; 99213

== ENCOUNTER → 2024-09-22 12:36 | Outpatient (BNVA) | payer OTHER, SELFPAY | PROVIDERS: PCP Family Medicine; Visit Provider Physician Assistant | DX: M19.011 Primary osteoarthritis, right shoulder (principal); M19.012 Primary osteoarthritis, left shoulder | CPT/HCPCS: 20610; 99212; J1010; J2003 ==

== ENCOUNTER 2024-11-18 15:35 | Outpatient (REF) | payer OTHER, SELFPAY ==
[2024-11-18 16:13] LABS: MANUAL DIFF FLAG NO
[2024-11-18 16:16] LABS: Appearance Urine Clear; Color Urine Dark Yellow; Glucose Urine UA Negative (Negative); Leukocyte Esterase Urine Negative (Negative); Nitrite Urine Negative (Negative); PH 6.5 (5.0-9.0); Urine Blood Negative (Negative); Urine Ketones Trace mg/dL (Negative); Urine Protein Trace mg/dL (Neg-Trace)
[2024-11-18 16:21] LABS: Basophils Percent Auto 0.4 % (0-2); Eosinophils Absolute Auto 0.3 X10*3/uL (0.0-0.4); Eosinophils Percent Auto 4.9 % (0-4); Hematocrit 39.9 % (42.0-52.0); Hemoglobin 12.5 g/dl (14.0-18.0); Imm Gran Abs Auto 0.01 X10*3/uL (0.00-0.03); Imm Gran Pct Auto 0.2 % (0.0-0.4); Lymphocytes Absolute Auto 1.9 X10*3/uL (1.2-4.9); Lymphocytes Percent Auto 34.4 % (20-40); Mean Corpuscular HGB Conc 31.3 g/dl (31.0-36.0); Mean Corpuscular Hemoglobin 27.2 pg (27.0-33.0); Mean Corpuscular Volume 86.9 fL (80.0-98.0); Mean Platelet Volume 8.5 fL (9.4-12.4); Monocytes Absolute Auto 0.6 X10*3/uL (0.1-1.2); Monocytes Percent Auto 11.5 % (2-11); Neutrophils Absolute Auto 2.7 x10*3/uL (2.0-8.3); Neutrophils Percent Auto 48.6 % (45-73); Platelet Count 257 X10*3/uL (160-400); Red Blood Count 4.59 X10*6/uL (4.60-5.80); Red Cell Distribution Width 13.6 % (11.0-16.0); White Blood Count 5.5 X10*3/uL (4.8-10.8)
[2024-11-18 16:24] LABS: Bacteria Urine None Seen (None Seen); RBC Urine 0-2 /HPF (0-2); Squamous Epithelial Cell Urine 0-2 /HPF (0-2); WBC Urine 0-5 /HPF (0-5)
[2024-11-18 16:48] LABS: Alanine Aminotransferase 21 U/L (0-40); Albumin Level 4.4 g/dL (3.5-5.0); Alkaline Phosphatase 75 U/L (39-117); Anion Gap 11 (12-20); Aspartate Amino Transferase 29 U/L (5-37); Bilirubin Total 0.4 mg/dL (0.0-1.0); Blood Urea Nitrogen 17 mg/dL (9-16); Calcium 9.6 mg/dL (8.4-10.2); Carbon Dioxide 23 mmol/L (22-29); Chloride 108 mmol/L (96-108); Cholesterol 199 mg/dL (<200); Estimated Glomerular Filt Rate > 60; Glucose Random 87 mg/dL (60-115); HDL Cholesterol 39 mg/dL (>40); LDL Cholesterol Calculated 140 mg/dL (<100); Potassium 4.2 mmol/L (3.3-5.1); Sodium 138 mmol/L (135-145); Total Protein 8.6 g/dL (6.5-8.0); Triglycerides 101 mg/dL (<150)
[2024-11-18 16:54] LABS: Estimated Average Glucose 111 mg/dL; Hemoglobin A1C 118.3051 umol/L; Hemoglobin A1c % 5.5 % (<6.0)
[2024-11-18 21:01] LABS: Reflex LDLD? No
[2024-11-19 06:12] LABS: HBc Num1 3.85 S/CO (0.00-0.79); HBsAGNum1 0.29 S/CO (0.00-0.99); Hepatitis B Surface Antigen Negative (Negative); ~Hepatitis B Surface Antibody REACTIVE (Nonreactive)
[2024-11-19 06:13] LABS: Hepatitis A Antibody IgG REACTIVE (Nonreactive); ~Hepatitis A Antibody IgG 9.28 S/CO (0.00-0.99)
[2024-11-19 07:46] LABS: HBc Num2 3.97 S/CO; HBc Num3 3.91 S/CO; Hepatitis B Core Antibody Reactive (Nonreactive)
[2024-11-19 10:19] LABS: Rubella IgG Antibody 7.79 Index; Rubeola IgG (Measles) <13.50 AU/mL
[2024-11-21 14:49] LABS: HIV RNA PCR Qn Copies 37 copies/mL (NOT DETECTED); HIV RNA PCR Qn Log Copies 1.57 (NOT DETECTED)
[2024-11-22 18:53] LABS: Absolute CD3 Count 1487 cells/uL (840-3060); Absolute CD4 Count 501 cells/uL (490-1740); Absolute CD8 Count 955 cells/uL (180-1170); Absolute Lymphocytes 2081 cells/uL (850-3900); CD4 CD8 Ratio 0.52 (0.86-5.00); Percent CD3 Cells 71 % (57-85); Percent CD4 Cells 24 % (30-61); Percent CD8 Cells 46 % (12-42)
== END 2024-11-18 15:36 | disposition home or self-care (01) ==
LOC: HO.HHCL 15:35
PROVIDERS: Visit Provider Student in an Organized Health Care Education/Training Program
DX: Z21 Asymptomatic human immunodeficiency virus [HIV] infection status (principal); Z13.1 Encounter for screening for diabetes mellitus; Z13.6 Encounter for screening for cardiovascular disorders
CPT/HCPCS: 36415; 80053; 80061; 81001; 83036; 85025; 86359; 86360; 86704; 86706; 86708; 86735; 86762; 86765; 87340; 87536

== ENCOUNTER 2025-02-24 13:53 | Outpatient (REF) | payer OTHER, SELFPAY ==
--- NOTE | ~2025-02-24 | MM_ITS ---
EXAMINATION: DXA BONE DENSITY AXIAL HISTORY: M89.9 TECHNIQUE: [employer] Dual energy absorptiometry (DEXA) of the lumbar spine, total left hip, and femoral neck was performed. COMPARISON: Comparison is made with the prior examination dated 11/24/2010. FINDINGS: The bone mineral density of the lumbar spine is 1.634 with a T-score of 3.5, and a Z-score of 3.3. This is indicative of normal bone mineral density. This represents a BMD change of 18.8% compared to the prior exam. This is statistically significant. The bone mineral density of the left total hip is 1.105 with a T-score of 0.0, and a Z-score of 0.2. This is indicative of normal bone mineral density. This represents a BMD change of -6.0% compared to the prior exam. This is statistically significant. The bone mineral density of the left femoral neck is 1.213 with a T-score of 1.1, and a Z-score of 1.6. This is indicative of normal bone mineral density. This represents a BMD change of -12.4% compared to the prior exam. FRACTURE RISK: The FRAX index suggests a ten year probability of major osteoporotic fracture of 10.9%, and of hip fracture 0.1%. MM/XR DEXA axial skeleton IMPRESSION: Based on bone mineral density, and according to World Health Organization (WHO) criteria, the diagnosis is consistent with normal bone mineral density. All bone density values are in grams per centimeter squared (g/cm2). Statistically, 68% of repeat scans fall within 1 SD (+/- 0.010 g/cm2 for AP spine L1-L4) and 1 SD (+/- 0.012 g/cm2 for femur total) FRAX is a trademark of the [employer]'s [place] [facility] Metabolic Bone Disease, a World Health Organization (WHO) Collaborating Center. Electronically signed by: Marcel Olmos MD 02/24/2025 02:44 PM EDT
== END 2025-02-24 13:54 | disposition home or self-care (01) ==
LOC: HO.MAMMO 13:53
PROVIDERS: PCP Family Medicine; Visit Provider Student in an Organized Health Care Education/Training Program
DX: Z13.820 Encounter for screening for osteoporosis (principal); Z21 Asymptomatic human immunodeficiency virus [HIV] infection status; M89.9 Disorder of bone, unspecified
CPT/HCPCS: 77080

== ENCOUNTER → 2025-02-24 14:30 | Outpatient (BNV) | payer OTHER, SELFPAY | PROVIDERS: PCP Family Medicine; Visit Provider Radiology Diagnostic Radiology | DX: M89.9 Disorder of bone, unspecified (principal) | CPT/HCPCS: 77080 ==